=== PATIENT | female | born 1935 | race Caucasian/White ===

== ENCOUNTER → 2017-02-23 | Outpatient (CLI) | payer MEDICARE, OTHER ==
[~2017-02-23] MED LIST: AUGMENTIN 875 M1 TAB PO; CLARITIN10 MG PO
== END | disposition home or self-care (01) ==
LOC: RAD 12:35
DX: M25.471 Effusion, right ankle (principal)

== ENCOUNTER → 2017-09-22 | Outpatient (CLI) | payer MEDICARE, MEDICAID | END | disposition home or self-care (01) | LOC: RAD 12:56 → US 13:30 | DX: M71.21 Synovial cyst of popliteal space [Baker], right knee (principal) ==

== ENCOUNTER → 2017-11-16 | Outpatient (CLI) | payer MEDICARE, MEDICAID ==
[~2017-11-16] MED LIST changes: +ANAPROX DS550 MG PO
== END | disposition home or self-care (01) ==
LOC: RAD 15:57
DX: M17.11 Unilateral primary osteoarthritis, right knee (principal); M25.461 Effusion, right knee

== ENCOUNTER 2017-11-20 13:53 | Emergency (ER) | payer MEDICARE, MEDICAID ==
[~2017-11-20] VITALS: Ht 157.4 cm; Wt 57.2 kg
[~2017-11-20 13:53] MED LIST changes: -ANAPROX DS550 MG PO
[2017-11-20 15:30] VITALS: BP 134/78
[2017-11-20] MEDS ORDERED: ANAPROX DS550 MG PO (16:03)
== END 2017-11-20 16:11 | disposition home or self-care (01) ==
LOC: ED 13:53
DX: M17.11 Unilateral primary osteoarthritis, right knee (principal); Z98.51 Tubal ligation status; Z86.718 Personal history of other venous thrombosis and embolism

== ENCOUNTER 2018-01-26 12:27 | Inpatient (IN) | payer OTHER, MEDICAID ==
[~2018-01-26] VITALS: Ht 157.5 cm; Wt 54.0 kg
--- NOTE | ~2018-01-26 | PR ---
[place], [place] PROGRESS NOTE NAME: KENYETTA JOYCE UNIT #: [id number] ROOM: 506 DOCTOR: AJ SUAREZ MD BIRTHDATE: [birth year] DOS: SUBJECTIVE: The patient looks much better this morning. She is not struggling to breathe like yesterday and now she has improved. OBJECTIVE: VITAL SIGNS: Graphic trend shows a pressure of 143/75, pulse of 85, respirations 18 and temperature 98.3. LUNGS: Diminished breath sounds, clear. HEART: Regular. ABDOMEN: Soft. EXTREMITIES: Without any edema. ASSESSMENT AND PLAN: 1. Congestive heart failure, on IV diuretics. Chest CT scan did not show any pneumonia. The white cell count elevation is most likely from steroid effect. We will decrease the steroid dosage some. White cell count is already coming down to 18,000. 2. Recent diagnosis of pneumonia, none seen on the CT scan other than atelectasis and antibiotics will be continued. 3. Iron deficiency anemia. Supplements have been ordered. AJ SUAREZ MD CM:PNTRANS [id number] AJ SUAREZ MD 01/31/18 1023 interface
--- NOTE | ~2018-01-26 | PR ---
[place], [place] PROGRESS NOTE NAME: KENYETTA JOYCE UNIT #: [id number] ROOM: 506 DOCTOR: AJ SUAREZ MD BIRTHDATE: [birth year] DOS: 01/28/2018 SUBJECTIVE: The patient is feeling good and is not having any complaints. Denies any chest pains, palpitations or shortness of breath. On examination, the patient has baseline shortness of breath which has really not changed a whole lot as per the patient. OBJECTIVE: VITAL SIGNS: Graphic trend shows a pressure of 149/85, pulse of 106, respirations 18 and temperature 97.5. LUNGS: Diminished breath sounds. HEART: Regular. ABDOMEN: Obese and soft. EXTREMITIES: Without any edema. She looks extremely tired and weak. LABORATORY DATA: This morning shows a white cell count of 22.8. ASSESSMENT AND PLAN: 1. The patient with possible sepsis with elevated white cell count. Blood culture so far has been negative. The chest will be ordered to rule out underlying pneumonia. 2. Left ventricular dysfunction, ejection fraction is pretty low at 40%. The patient will be diuresed more vigorously. AJ SUAREZ MD CM:PNTRANS [id number] [id number] AJ SUAREZ MD 01/29/18 0144 interface
--- NOTE | ~2018-01-26 | DS ---
[place], [place] DISCHARGE SUMMARY NAME: [id number] UNIT #: [id number] ROOM: 506 DOCTOR: KAILASH ALEXIS MD BIRTHDATE: [birth year] DOS: 01/31/2018 DISCHARGE DIAGNOSES: 1. The patient's leukocytosis from corticosteroids and pneumonitis, improving with antibiotics. 2. Acute congestive heart failure, systolic, now improved with diuresis. 3. History of hypothyroidism. 4. Benign essential hypertension. 5. Anemia of chronic disease. 6. Chronic obstructive pulmonary disease from secondhand smoke. 7. Sepsis with tachycardia, leukocytosis and acute respiratory failure with elevation of BUN and creatinine, BUN and creatinine improved. 8. Osteoarthritis involving multiple large joints. 9. Raynaud's disease. HOSPITAL COURSE: The patient presented with increased shortness of breath, feeling quite sick and was found to be in acute congestive heart failure, systolic type as well as acute exacerbation of COPD and pneumonitis with leukocytosis. The patient was considered septic. The patient is feeling miserable and gradually her condition has improved with diuresis, treatment with antibiotics and her breathing is much better. The patient feels desperate to go home and she appears to have achieved maximal benefit from this admission. The patient is not tachycardic anymore. She is breathing better and has been seen by Cardiology. The patient was treated with antibiotics for acute exacerbation of COPD and suspected pneumonitis, which was clinically suspected because of her leukocytosis and the patient being quite sick. Her condition is much improved and leukocytosis improving, so she will be discharged home on oral antibiotics to be seen as an outpatient. Acute exacerbation of chronic obstructive pulmonary disease, improved with treatment. Adult failure to thrive, the patient worked with physical therapy and she has improved. LABORATORY DATA: BUN and creatinine at 43 and 1.8, normal serum electrolytes, BUN and creatinine elevated from use of IV diuresis. Hemoglobin improved to 8.9. Blood cultures were negative. CT of the chest showed airspace disease next to bilateral pleural effusions and some vascular congestion. DISCHARGE MANAGEMENT: Hydralazine 25 mg 3 times a day, furosemide, no prednisone, levothyroxine 75 mcg daily, metoprolol 25 mg b.i.d., trazodone 50 mg at bedtime p.r.n. for sleep, Augmentin 875 mg twice a day for 4 weeks. Follow up at the office with me this week. [place], [place] DISCHARGE SUMMARY NAME: KENYETTA JOYCE UNIT #: [id number] ROOM: 506 DOCTOR: KAILASH ALEXIS MD BIRTHDATE: [birth year] KAILASH ALEXIS MD CM:DISCHARG [id number] KAILASH ALEXIS MD 01/31/18 1753 interface
--- NOTE | ~2018-01-26 | PR ---
[place], [place] PROGRESS NOTE NAME: KENYETTA JOYCE UNIT #: [id number] ROOM: 506 DOCTOR: AJ SUAREZ MD BIRTHDATE: [birth year] DOS: 01/30/2018 SUBJECTIVE: The patient is not having any complaints this morning. Denies any chest pains, palpitations or shortness of breath. OBJECTIVE: VITAL SIGNS: Graphic trend shows a pressure 146/77, pulse of 84, respirations 18, temperature 98.1. LUNGS: Diminished breath sounds. No wheezes, rales, rhonchi heard this morning. HEART: Regular. ABDOMEN: Obese, soft and nontender. EXTREMITIES: Without any edema. ASSESSMENT AND PLAN: 1. Acute systolic congestive heart failure, with moderate bilateral pleural effusions and atelectasis and vascular congestion, on IV diuretics improving. 2. Echocardiogram showing valvular heart disease. The patient to have a STEPHEN as an outpatient. 3. Cardiac ischemia workup to be done with catheterization also as an outpatient as per Dr. Montemayor's notes. 4. Elevated white cell count, possibly steroid effect, which has been discontinued. Hopefully, it will come down on its own and she is already being covered with antibiotics. We will repeat the CBC again tomorrow. 5. Anemia, iron deficiency. The patient may require a GI workup as an outpatient before the cardiac catheterization. She tells me she had more than 10 years ago, which was negative. AJ SUAREZ MD CM:PNTRANS [id number] AJ SUAREZ MD 01/31/18 1024 interface
--- NOTE | ~2018-01-26 | PR ---
[place], [place] PROGRESS NOTE NAME: KENYETTA JOYCE [facility] #: [id number] UNIT #: [id number] ROOM: 506 DOCTOR: JOSE R LEONG MD BIRTHDATE: [birth year] DOS: 01/30/2018 CARDIOLOGY PROGRESS NOTE SUBJECTIVE: The patient was seen at her bedside today on 01/30/2018 for followup of her heart failure. 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 She presented to the hospital on January 26 with worsening dyspnea and was felt to have heart failure. An echocardiogram done on January 27 showed left ventricular dysfunction with septal wall motion abnormality and an ejection fraction between 45% and 50%. Right ventricular systolic pressure was moderately elevated between 50% and 55%. Mitral valve did demonstrate [id number] regurgitation, but no stenosis. The patient was treated with diuretics and has improved. She was also placed on beta blockers for heart rate control. She has subsequently been placed on hydralazine as an afterload reducing agent. Today, she looks and feels better. She has diuresed 2000 mL in the last 24 hours. PHYSICAL EXAMINATION: VITAL SIGNS: Her pulse is 77 and regular, blood pressure is 141/69. She is afebrile. NECK: Supple. She has no jugular distention. Carotids are full. I heard no bruits. She had no neck or supraclavicular masses. LUNGS: Respirations are unlabored. Her chest is clear. She has no presacral edema. HEART: Has a regular rhythm. She has a fourth heart sound. I could not hear her murmur today. ABDOMEN: Benign. EXTREMITIES: Showed no edema. LABORATORY DATA: Hemoglobin is 7.6, white count is 18,200, platelet count 626,000. Sodium 134, potassium 4.5, BUN 46, creatinine 1.94. IMPRESSION: 1. Congestive heart failure, improved with better compensation over the last few days. 2. Anemia, unexplained. 3. Hypertension. 4. History of hypothyroidism. 5. History of chronic obstructive pulmonary disease from secondhand smoke exposure. PLAN: We will continue her current diuretics for the present time. She will require further workup of her anemia. In addition, I would like her to undergo an ischemia workup to evaluate her for possible ischemic mitral insufficiency. She is reluctant to proceed with that at this time until she is feeling better. For now, we will increase her hydralazine and continue to observe her in the hospital. [place], [place] PROGRESS NOTE NAME: KENYETTA JOYCE UNIT #: [id number] ROOM: 506 DOCTOR: JOSE R LEONG MD BIRTHDATE: [address] Campo and Dr. Limon for asking our advice regarding management of this patient. JOSE R LEONG MD CM:PNTRANS [id number] JOSE R LEONG MD 01/31/18 0614 interface
--- NOTE | ~2018-01-26 | CON ---
[place], [place] REPORT OF CONSULTATION NAME: KENYETTA JOYCE UNIT #: [id number] ROOM: 506 DOCTOR: JOSE R LEONG MD BIRTHDATE: [birth year] DOS: 01/27/2018 CHIEF COMPLAINT: Dyspnea and fatigue. 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 She is status post right carotid endarterectomy in March 2012. She has never had a stroke or heart attack. She states that she has felt poorly for about 2 weeks. Her appetite has decreased and she has had some nausea, but no vomiting. She has been treated as an outpatient for bronchitis, but has not gotten better and therefore came in to the hospital for further management. On admission, she was found to be tachycardic. She was anemic with a hemoglobin of 8.0. Chest x-ray did show vascular congestion. She was diuresed and we were asked to see her. PAST MEDICAL HISTORY: Includes 1. Essential hypertension. 2. Hypothyroidism. 3. Raynaud's phenomenon. 4. Obstructive lung disease due to secondhand smoke exposure. 5. History of carotid vascular disease, status post carotid endarterectomy March 2012, patient denies any history of stroke. 6. No history of heart attack, diabetes or stroke. FAMILY HISTORY: Positive for her brother and sister dying of heart attacks. Her father had a heart problem, but of suicide. Son also had amyotrophic lateral sclerosis and perished from that. MEDICATIONS: Prior to admission, Restasis eyedrops b.i.d., acetaminophen 500 mg q. 6 hours p.r.n., amlodipine 5 mg daily, aspirin 81 mg daily, cholecalciferol 1000 units daily, ibuprofen 200 mg every 4 hours for the last 2-3 months and levothyroxine 75 mcg daily. ALLERGIES: LATEX. REVIEW OF SYSTEMS: The patient denies diplopia or loss of vision. She denies lightheadedness or syncope. She denies orthopnea or PND. She has been dyspneic and fatigued. She has felt her heart pounding. She denies nausea or vomiting, but she does have anorexia. She denies hemoptysis or hematemesis. She does have mild cough, but denies any sputum production. She denies change in bowel or bladder habits. She denies blood in her stools or urine. She denies melena or hematochezia. She denies peripheral edema. She denies heat or cold intolerance and denies polyuria or polydipsia. The remainder of the review of systems is negative except as noted above. SOCIAL HISTORY: The patient lives alone with her dogs. She does not smoke nor does she consume significant amounts of alcohol. PHYSICAL EXAMINATION: [place], [place] REPORT OF CONSULTATION NAME: KENYETTA JOYCE UNIT #: [id number] ROOM: [facility] DOCTOR: JOSE R LEONG MD BIRTHDATE: [birth year] GENERAL: The patient is a slender, elderly white female who is awake, alert and oriented. VITAL SIGNS: Pulse is 110 and regular, blood pressure is 148/82. She is afebrile. She weighs 54 kg and has a body mass index 21.8. HEENT: Normocephalic and atraumatic. Extraocular muscles are intact. Sclerae are clear. Pupils equal, round and react to light. The oral mucosa is moist. Tongue is midline. NECK: Supple. She has no jugular distention or hepatojugular reflux. Carotids are full. There are no bruits. She has no neck or supraclavicular masses. LUNGS: Respirations are unlabored. She has decreased breath sounds at the bases with a few scattered crackles at the bases. She has no presacral edema or chest wall tenderness. HEART: Has a regular rhythm. She has a soft S4 gallop, but no S3 or murmur. The PMI is not displaced. There is no precordial heave, lift or thrill. ABDOMEN: Soft and normally active without masses, organomegaly or bruits. EXTREMITIES: Showed trace edema at the ankles. Pedal pulses are easily palpated bilaterally. LABORATORY DATA: Chest x-ray showed cardiomegaly and vascular congestion. Her electrocardiogram shows sinus tachycardia with left ventricular hypertrophy and nonspecific T-wave changes. Hemoglobin is 8.0 with hematocrit 26.6, there are 11,700 white cells and 626,000 platelets present. Sodium is 137, potassium 4.1, chloride 105, CO2 21, BUN 24, creatinine 1.36. IMPRESSION: 1. Congestive heart failure with pulmonary vascular congestion. This may be related to high output failure from her anemia or diastolic heart failure from long-term hypertension. In addition, she is taking a relatively high dose of ibuprofen and this may be causing renal insufficiency, blood loss, etc. 2. Anemia with hemoglobin 8.0. 3. Hypertension. 4. History of hypothyroidism. 5. History of COPD from secondhand smoke exposure. PLAN: I will start her on a low dose of beta festus to help control her heart rate, but I will defer evaluation of her anemia to her primary physicians. We will review the echocardiogram when it is available. Further recommendations regarding the cause of her pulmonary vascular congestion and its management will depend upon the results of the echo. We thank Dr. Campo for asking our advice regarding her care. [place], [place] REPORT OF CONSULTATION NAME: KENYETTA JOYCE UNIT #: [id number] ROOM: [facility] DOCTOR: JOSE R LEONG MD BIRTHDATE: [birth year] JOSE R LEONG MD CM:CONSTR:REPORT OF CONSULTATION 1424 01/28/18 1056 interface
--- NOTE | ~2018-01-26 | PR ---
[place], [place] PROGRESS NOTE NAME: KENYETTA JOYCE UNIT #: [id number] ROOM: 506 DOCTOR: KAILASH ALEXIS MD BIRTHDATE: [birth year] DOS: 01/27/2018 SUBJECTIVE: The patient is still feeling miserable, although not complaining of any significant shortness of breath or any other symptoms. OBJECTIVE: VITAL SIGNS: Blood pressure 159/80, heart rate 106 beats per minute, breathing 18 times per minute, temperature 98 degrees Fahrenheit. GENERAL APPEARANCE: The patient is alert and oriented x 3, in no visible distress. HEENT AND NECK: Exam within normal limits. CARDIOVASCULAR SYSTEM: Heart rate is regular in rate and rhythm. S1 and S2 normally audible. LUNGS: Basal crackles and somewhat decreased breath sounds on lung auscultation. ABDOMEN: Soft, nontender. No obvious organomegaly. Bowel sounds are present. EXTREMITIES: Without significant cyanosis or edema. IMPRESSION: Slight leukocytosis. Hemoglobin at 8 and stable. IMPRESSION: 1. Acute exacerbation of chronic obstructive pulmonary disease, with some shortness of breath, being treated with corticosteroids, oxygen, antibiotic and bronchodilators. 2. Sepsis, tachycardia, pneumonitis, being treated as mentioned above. 3. Acute congestive heart failure with bibasilar vascular congestion and effusions, being treated with diuresis. 4. Adult failure to thrive. The patient worked with physical therapy. 5. Sepsis with hypoxemia, elevation of BUN and creatinine, respiratory failure, tachycardia and leukocytosis with slow improvement with treatment. 6. Benign essential hypertension, treated and controlled. KAILASH ALEXIS MD CM:PNTRANS [id number] KAILASH ALEXIS MD 01/27/18 2334 interface
--- NOTE | ~2018-01-26 | WRIGHTHP ---
[place], [place] PATIENT HISTORY AND PHYSICAL EXAM NAME: KENYETTA JOYCE [facility] #: [id number] UNIT #: [id number] ROOM: 506 DOCTOR: KAILASH ALEXIS MD BIRTHDATE: [birth year] DOS: 01/26/2018 The patient is an 82-year-old female with a past medical history of: 1. Hypothyroidism. 2. Raynaud's disease. 3. Benign essential hypertension. 4. Osteoarthritis involving multiple joints. 5. COPD. The patient presented to [facility] after failed outpatient treatment. The patient presented to my office and was treated with antibiotics and corticosteroids. The patient's voiding did not improve and she is still having cough for about 2 weeks along with shortness of breath. The patient has not been a smoker, but she had been exposed to significant amount of secondhand smoke and had decreased breath sounds and also crackles at the lung bases. After initial treatment in the Emergency Department and she was found to have some leukocytosis, she was recommended for admission for pneumonitis, after she was given initial antibiotics. The patient also diagnosed as having acute respiratory failure and sepsis. After admission, the patient is still feeling about the same. No fainting episode. No other GI or urinary symptoms. No chest pains, no other GI or urinary symptoms. SYSTEMS REVIEW: LUNGS: Increasing shortness of breath. GASTROINTESTINAL: No nausea, vomiting, diarrhea or constipation. CARDIOVASCULAR: No chest pains or palpitations. ALLERGIES: No known drug allergies. FAMILY HISTORY: Noncontributory. HOME MEDICATIONS: The patient takes Tylenol, ibuprofen for arthritis pains. She takes Restasis eyedrops, Tylenol, Advil, amlodipine, aspirin, vitamin D. FAMILY HISTORY: Noncontributory. SOCIAL HISTORY: Denies smoking cigarettes, alcohol and drug abuse with significant history of secondhand smoke. PHYSICAL EXAMINATION: GENERAL: Alert, oriented x 3, looking somewhat weak. Generalized weakness and decreased breath sounds all over including fine crackles at the lung bases. VITAL SIGNS: Blood pressure 142/76, heart rate 102 beats per minute, breathing 22 times per minute, temperature 98 degrees Fahrenheit. HEENT AND NECK: Extraocular movements are intact. Sclerae are anicteric. Oral mucosa is moist and clean. No obvious facial weakness. Neck is supple without any lymphadenopathy. No thyromegaly. No JVD. No carotid arterial bruits. LUNGS: Clear to auscultation. No wheezing. No rhonchi. CARDIOVASCULAR SYSTEM: Heart rate is regular in rate and rhythm. S1 and S2 [place], [place] PATIENT HISTORY AND PHYSICAL EXAM NAME: KENYETTA JOYCE UNIT #: [id number] ROOM: [facility] DOCTOR: KAILASH ALEXIS MD BIRTHDATE: [birth year] normally audible. No significant murmur or any other abnormal cardiac sounds. ABDOMEN: Soft, nontender. No obvious organomegaly. Bowel sounds are present. No obvious herniation. EXTREMITIES: Without significant cyanosis or edema. Warm to touch. CENTRAL NERVOUS SYSTEM: Alert and oriented x 3. Cranial nerves II-XII are intact. Speech is normal. The patient is able to move all extremities. Normal muscle strength. Deep tendon reflexes are equal on both sides. Plantars were downgoing. IMPRESSION: 1. The patient with sepsis with tachycardia, pneumonitis with bibasilar vascular congestion and effusions, increased shortness of breath to be treated with antibiotics, oxygen and bronchodilators. I am consulting Cardiology to see the patient and I have also ordered echocardiogram for further evaluation. 2. Acute exacerbation of chronic obstructive pulmonary disease being treated with corticosteroids, antibiotics and oxygen along with bronchodilators. 3. Adult failure to thrive. The patient started on physical therapy. 4. Sepsis, this patient has leukocytosis, tachycardia, respiratory failure, and BUN and creatinine elevated to 23 and 1.3 along with hypoxemia. Pulse ox was 88% when she presented to the Emergency Department. 5. Benign essential hypertension. The patient on Norvasc, which will be continued. Blood pressures will be monitored. KAILASH ALEXIS MD CM:HISPHYS:PATIENT HISTORY AND PHYSICAL EXAMINATION 44 21 KAILASH ALEXIS MD 01/26/181819 interface
--- NOTE | ~2018-01-26 | PR ---
[place], [place] PROGRESS NOTE NAME: KENYETTA JOYCE [facility] #: [id number] UNIT #: [id number] ROOM: 506 DOCTOR: JOSE R LEONG MD BIRTHDATE: [birth year] DOS: 01/31/2018 SUBJECTIVE: The patient was seen at her bedside today 01/31/2018 for followup of her acute heart failure. 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 She presented to the hospital on 01/26/2018 with worsening dyspnea and heart failure. An echocardiogram done on 01/27/2018 showed left ventricular dysfunction with septal wall motion abnormality and ejection fraction between 45% and 50%. Right ventricular systolic pressures were moderately elevated at between 50 and 55 mmHg. Mitral valve did demonstrate mahmkqfj-[id number]-[id number] regurgitation, but no stenosis. She was treated with diuretics and beta blockers as well as hydralazine. She has become euvolemic and now feels much better. There is a concern that her heart failure and her mitral insufficiency may be due to ischemia and further evaluation is indicated, however, the patient would like to take a little time to recover before having any further testing and is anxious for discharge. She denies any chest pain and has been able to ambulate in the halls without difficulty. PHYSICAL EXAMINATION: VITAL SIGNS: Today, her pulse is 85 and regular, blood pressure 141/66. She is afebrile. She weighs 54 kg and has a body mass index of 21.8. HEENT: Normocephalic and atraumatic. Extraocular muscles are intact. Sclerae are clear. Pupils equal, round and react to light. Oral mucosa is moist. Tongue is midline. NECK: Supple. There is no jugular distention. Carotids are full. LUNGS: Respirations are unlabored. Her chest is clear to auscultation and percussion. She has no presacral edema. HEART: Has a regular rhythm. She has a fourth heart sound, but no third heart sound. I do not hear a mitral insufficiency murmur today. The PMI is not displaced. ABDOMEN: Benign. EXTREMITIES: Showed no edema. LABORATORY DATA: Hemoglobin today is 8.9, white count 15,800, platelet count 666,000. Sodium is 137, potassium 3.6, chloride 97, CO2 of 31, BUN 43, creatinine 1.82. IMPRESSION: 1. Acute congestive heart failure. 2. 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 Symptoms and exam improved with appropriate guideline directed medical therapy. 3. Anemia with leukocytosis and thrombophilia. The patient has been weaned off of steroids and this is the presumed cause, but will require followup. PLAN: From a cardiac perspective, our next step will be a pharmacologic stress test, which will be done within the next week as an outpatient. If this shows [place], [place] PROGRESS NOTE NAME: KENYETTA JOYCE UNIT #: [id number] ROOM: 506 DOCTOR: SALO DORSEY,JOSE R BIRTHDATE: [birth year] significant ischemia and left ventricular dysfunction, then cardiac catheterization would be the next step. A transesophageal echocardiogram may be considered in the future as well depending on the patient's progress and the results of studies such as her catheterization. We thank Dr. Campo and Dr. Limon for asking our advice regarding the patient's care. JOSE R LEONG MD CM:PNTRANS 1136 [id number] JOSE R LEONG MD 02/01/18 1004 interface
[2018-01-26 12:27] VITALS: BP 146/85
[~2018-01-26 12:27] MED LIST changes: +ANAPROX DS550 MG PO
[2018-01-26 14:00] VITALS: BP 143/88
[2018-01-26 14:26] LABS: BASO % 0.3 % (0.0-1.0); EOS # 0.3 10*3/uL (0.0-0.4); EOS % 2.6 % (1.0-4.0); HEMATOCRIT 27.5 % (37.0-47.0); HEMOGLOBIN 8.4 g/dl (12.0-16.0); LYMPH # 2.3 10*3/uL (1.3-4.4); MEAN CELL VOLUME 86.2 fl (81.0-99.0); MEAN CORPUSCULAR HGB 26.3 pg (27.0-31.0); MEAN CORPUSCULAR HGB CONC 30.5 g/dl (33.0-37.0); MEAN PLATELET VOLUME 8.6 fl (9.6-12.3); MONO # 0.8 10*3/uL (0.1-1.0); MONO % 6.2 % (3.0-9.0); NEUT # 9.8 10*3/uL (2.3-7.9); NEUT % 73.1 % (47.0-73.0); PLATELET COUNT AUTOMATED 575 10*3/uL (130-400); RED BLOOD COUNT 3.19 10*6/uL (4.10-5.10); RED CELL DISTRI WIDTH 16.4 % (0-14.5); WHITE BLOOD COUNT 13.3 10*3/uL (4.8-10.8)
[2018-01-26 14:42] LABS: ALBUMIN 3.2 gm/dl (3.1-4.5); CREATININE 1.31 mg/dL (0.55-1.02); TOTAL PROTEIN 7.9 gm/dL (6.4-8.2)
[2018-01-26 14:53] LABS: BILIRUBIN NEGATIVE (NEGATIVE); BLOOD NEGATIVE (NEGATIVE); CLARITY CLEAR (CLEAR); COLOR YELLOW (YELLOW); GLUCOSE NEGATIVE (NEGATIVE); KETONE NEGATIVE (NEGATIVE); LEUKO ESTERASE 1+ (NEGATIVE); NITRITE NEGATIVE (NEGATIVE); PH 5.5 (5.0-9.0); SPECIFIC GRAVITY <= 1.005 (1.005-1.030); UROBILINOGEN 0.2 E.U./dl (0.2-1.0)
[2018-01-26 15:00] VITALS: BP 151/90
[2018-01-26 15:00] LABS: RBC 0-2 rbc/hpf (0-2)
[2018-01-26 15:01] LABS: BACTERIA 2+
[2018-01-26 16:00] VITALS: BP 142/76
[2018-01-26] MEDS ORDERED: VITAMIN D31000 UNI1 PO (17:23)
[2018-01-26] MEDS ORDERED: ASPIRIN ADULT L81 M1 PO (17:24)
[2018-01-26] MEDS ORDERED: NORVASC5 MG PO (17:24)
[2018-01-26] MEDS ORDERED: TYLENOL EXTRA500 MG PO (17:25)
[2018-01-26] MEDS ORDERED: RESTASIS1 EACH OP (17:25)
[2018-01-26] MEDS ORDERED: MOTRIN IB200 M1 PO (17:27)
[2018-01-26 20:00] VITALS: BP 171/87
[2018-01-27] VITALS: BP 159/80
[2018-01-27 06:32] LABS: BASO % 0.2 % (0.0-1.0); HEMATOCRIT 26.6 % (37.0-47.0); LYMPH # 1.4 10*3/uL (1.3-4.4); MEAN CELL VOLUME 86.1 fl (81.0-99.0); MEAN CORPUSCULAR HGB 25.9 pg (27.0-31.0); MEAN CORPUSCULAR HGB CONC 30.1 g/dl (33.0-37.0); MEAN PLATELET VOLUME 8.8 fl (9.6-12.3); MONO # 0.2 10*3/uL (0.1-1.0); MONO % 1.9 % (3.0-9.0); NEUT % 84.7 % (47.0-73.0); PLATELET COUNT AUTOMATED 626 10*3/uL (130-400); RED BLOOD COUNT 3.09 10*6/uL (4.10-5.10); RED CELL DISTRI WIDTH 16.7 % (0-14.5); WHITE BLOOD COUNT 11.7 10*3/uL (4.8-10.8)
[2018-01-27 06:55] LABS: CREATININE 1.36 mg/dL (0.55-1.02); POTASSIUM 4.1 mmol/L (3.5-5.1)
[2018-01-27] MEDS ORDERED: LEVOTHYROXINE75 MCG PO (07:23)
[2018-01-27 12:00] VITALS: BP 148/82
[2018-01-27 16:00] VITALS: BP 147/77
[2018-01-27 20:00] VITALS: BP 163/96
[2018-01-28] VITALS: BP 149/85
[2018-01-28 06:33] LABS: HEMATOCRIT 27.3 % (37.0-47.0); HEMOGLOBIN 8.2 g/dl (12.0-16.0); MEAN CELL VOLUME 87.5 fl (81.0-99.0); MEAN CORPUSCULAR HGB 26.3 pg (27.0-31.0); MEAN PLATELET VOLUME 9.3 fl (9.6-12.3); PLATELET COUNT AUTOMATED 722 10*3/uL (130-400); RED BLOOD COUNT 3.12 10*6/uL (4.10-5.10); RED CELL DISTRI WIDTH 17.1 % (0-14.5); WHITE BLOOD COUNT 22.8 10*3/uL (4.8-10.8)
[2018-01-28 07:12] LABS: CREATININE 1.71 mg/dL (0.55-1.02); POTASSIUM 4.9 mmol/L (3.5-5.1)
[2018-01-28 07:32] LABS: PLATELET SUFFICIENCY HIGH (NORMAL); TOTAL CELLS COUNTED 100 #CELLS
[2018-01-28 08:00] VITALS: BP 150/72
[2018-01-28 12:00] VITALS: BP 145/80
[2018-01-28 16:00] VITALS: BP 149/80
[2018-01-28 20:00] VITALS: BP 151/66
[2018-01-29] VITALS: BP 143/75
[2018-01-29 06:13] LABS: HEMATOCRIT 25.2 % (37.0-47.0); HEMOGLOBIN 7.6 g/dl (12.0-16.0); MEAN CELL VOLUME 86.3 fl (81.0-99.0); MEAN CORPUSCULAR HGB CONC 30.2 g/dl (33.0-37.0); MEAN PLATELET VOLUME 9.3 fl (9.6-12.3); PLATELET COUNT AUTOMATED 626 10*3/uL (130-400); RED BLOOD COUNT 2.92 10*6/uL (4.10-5.10); WHITE BLOOD COUNT 18.2 10*3/uL (4.8-10.8)
[2018-01-29 06:31] LABS: CREATININE 1.94 mg/dL (0.55-1.02); POTASSIUM 4.5 mmol/L (3.5-5.1)
[2018-01-29 07:02] LABS: PLATELET SUFFICIENCY HIGH (NORMAL); TOTAL CELLS COUNTED 100 #CELLS
[2018-01-29 08:00] VITALS: BP 144/73
[2018-01-29 12:00] VITALS: BP 142/72
[2018-01-29 16:00] VITALS: BP 149/78
[2018-01-29 20:00] VITALS: BP 143/74
[2018-01-30] VITALS: BP 146/77
[2018-01-30 08:00] VITALS: BP 141/69
[2018-01-30 12:00] VITALS: BP 131/68
[2018-01-30 16:00] VITALS: BP 144/64
[2018-01-30 20:00] VITALS: BP 146/70
[2018-01-31] VITALS: BP 148/71
[2018-01-31] MEDS ORDERED: IBUPROFEN600 MG PO (01:41)
[2018-01-31 06:45] LABS: HEMATOCRIT 29.1 % (37.0-47.0); HEMOGLOBIN 8.9 g/dl (12.0-16.0); MEAN CELL VOLUME 86.1 fl (81.0-99.0); MEAN CORPUSCULAR HGB 26.3 pg (27.0-31.0); MEAN CORPUSCULAR HGB CONC 30.6 g/dl (33.0-37.0); PLATELET COUNT AUTOMATED 666 10*3/uL (130-400); RED BLOOD COUNT 3.38 10*6/uL (4.10-5.10); RED CELL DISTRI WIDTH 17.4 % (0-14.5); WHITE BLOOD COUNT 15.8 10*3/uL (4.8-10.8)
[2018-01-31 07:04] LABS: CREATININE 1.82 mg/dL (0.55-1.02); POTASSIUM 3.6 mmol/L (3.5-5.1)
[2018-01-31 07:34] LABS: TOTAL CELLS COUNTED 100 #CELLS
[2018-01-31 07:35] LABS: PLATELET SUFFICIENCY HIGH (NORMAL); POLYCHROMASIA SLIGHT
[2018-01-31 08:00] VITALS: BP 141/66
[2018-01-31] MEDS ORDERED: AUGMENTIN 875-875 MG PO (09:20)
== END 2018-01-31 11:35 | disposition home or self-care (01) | DRG 871 ==
LOC: ED 12:27 → EDHOLD 14:24 → 5E 14:24
PROVIDERS: Internal Medicine; Nurse Practitioner
DX: A41.9 Sepsis, unspecified organism (principal); J18.9 Pneumonia, unspecified organism; J96.01 Acute respiratory failure with hypoxia; I50.21 Acute systolic (congestive) heart failure; J44.0 Chronic obstructive pulmonary disease with (acute) lower respiratory infection; I34.0 Nonrheumatic mitral (valve) insufficiency; I13.0 Hypertensive heart and chronic kidney disease with heart failure and stage 1 through stage 4 chronic kidney disease, or unspecified chronic kidney disease; D63.8 Anemia in other chronic diseases classified elsewhere; J44.1 Chronic obstructive pulmonary disease with (acute) exacerbation; Z66 Do not resuscitate; Z51.5 Encounter for palliative care; N18.9 Chronic kidney disease, unspecified; E03.9 Hypothyroidism, unspecified; I73.00 Raynaud's syndrome without gangrene; T38.0X5A Adverse effect of glucocorticoids and synthetic analogues, initial encounter; M19.90 Unspecified osteoarthritis, unspecified site; R62.7 Adult failure to thrive; D50.9 Iron deficiency anemia, unspecified; Z91.040 Latex allergy status; Z79.82 Long term (current) use of aspirin; Z79.899 Other long term (current) drug therapy; Z98.51 Tubal ligation status; Z98.49 Cataract extraction status, unspecified eye; Z80.9 Family history of malignant neoplasm, unspecified; Z82.49 Family history of ischemic heart disease and other diseases of the circulatory system; Y92.89 Other specified places as the place of occurrence of the external cause

== ENCOUNTER → 2018-02-06 | Outpatient (CLI) | payer OTHER, MEDICAID ==
[~2018-02-06] MED LIST changes: +APRESOLINE25 MG PO; +ASPIRIN ADULT L81 M1 PO; +ASPIRIN81 M1 PO; +AUGMENTIN 875-875 MG PO; +CEFUROXIME AXE250 MG PO; +CYPROHEPTADINE H4 M1 PO; +IBUPROFEN600 MG PO; +IMDUR SA30 MG PO; +Ipratropium Brom3 ML NEB; +KLOR-CON M2020 ME1 PO; +LASIX40 MG PO; +LEVOTHYROXINE75 MCG PO; +LEVOXYL75 MCG PO; +MOTRIN IB200 M1 PO; +NORVASC5 MG PO; +RESTASIS1 EACH OP; +TENORMIN25 M1 PO; +TYLENOL EXTRA500 MG PO; +VITAMIN D31000 UNI1 PO
--- NOTE | ~2018-02-06 | ST ---
[place], [place] EXERCISE STRESS TEST REPORT NAME: KENYETTA JOYCE [facility] #: [id number] UNIT #: [id number] ROOM: DOCTOR: KATHLEEN DORSEY,ED BIRTHDATE: [birth year] DOS: 02/06/2018 REFERRING PHYSICIAN: Dr. Jorge Fung. REASON FOR TEST: Chest pain. PHYSICAL EXAMINATION: NECK: Supple. LUNGS: Clear anteriorly. HEART: Regular rhythm. PROTOCOL: Lexiscan protocol. Maximum heart rate 110, peak blood pressure 132/70. SYMPTOMS: The patient has some shortness of breath, nausea, resolved. EKG: Resting EKG showed sinus rhythm. Stress EKG showed no ischemia, no arrhythmias. CONCLUSION: Clinically, the patient is chest pain free, developed some shortness of breath with nausea, resolved. POST-STRESS COMPLICATIONS: None. The patient received a total of 0.4 mg Lexiscan. ED WANG MD CM:STRESS:EXERCISE STRESS TEST REPORT [id number] ED WANG MD
== END | disposition home or self-care (01) ==
LOC: CARD 00:46
DX: R07.2 Precordial pain (principal); R53.81 Other malaise

== ENCOUNTER 2018-02-24 17:12 | Inpatient (IN) | payer OTHER, MEDICAID ==
[2018-02-24] VITALS (11 sets, daily range): BP systolic 92–182; BP diastolic 50–114
[~2018-02-24] VITALS: Ht 157.4 cm; Wt 51.8 kg
--- NOTE | ~2018-02-24 | EKG ---
[place], [place] ELECTROCARDIOGRAM REPORT NAME: KENYETTA JOYCE UNIT #: [id number] ROOM: 409 DOCTOR: CHRISTINA DRAFT REPORT BIRTHDATE: [birth year] [facility] Test Date: 2018-02-24 Test Time: 17:58:43 Pat Name: KENYETTA JOYCE Department: Room: Gender: F Manager Of Health: EKG.NC : 1935 Requested By: CONSTANTINE HOWE PA-C Order Number: [id number] Reading MD: Jorge Fung MD Measurements Intervals Robinson Rate: 128 P: 64 MD: 142 QRS: 39 QRSD: 76 T: 44 QT: 318 QTc: 464 Interpretive Statements Sinus tachycardia Left atrial enlargement Poor precordial R-wave progression Electronically Signed On 02-27-2018 18:42:08 PDT by Jorge Fung MD CM:EKGRPT:ELECTROCARDIOGRAM REPORT [id number] CONSTANTINE HOWE PA-C EPIPHARACELY DRAFT REPORT CONSTANTINE HOWE PA-C
--- NOTE | ~2018-02-24 | WRIGHTHP ---
[place], [place] PATIENT HISTORY AND PHYSICAL EXAM [id number] UNIT #: [id number] ROOM: 409 DOCTOR: AJ SUAREZ MD BIRTHDATE: [birth year] DOS: 02/25/2018 HISTORY OF PRESENT ILLNESS: This patient is 82 years old, known to me from the last admission to the hospital. The patient was admitted here last with diastolic CHF. She has had a stress test about 2 weeks ago and does not know the results, came into the Emergency Room yesterday with acute onset of shortness of breath, which has increased over the last few days. She denies having any chest pains or palpitations. She arrived to the Emergency Room. She was quite hypoxic, was placed on BiPAP and she desaturated on the BiPAP. At that time, the family and the patient agreed on a DNR-CC comfort care and the family decided to put her on hospice. This morning, the patient is awake and alert and oriented, sitting up, breathing a little bit more easier and wants to take medications if it would help her. She denied having any chest pains or palpitations. PAST MEDICAL HISTORY: Significant for; 1. Recent hospitalization for CHD. 2. Stress test done 2 weeks ago showing no perfusion defects with an ejection fraction of 60%. 3. Moderate to severe mitral regurgitation. 4. Leukocytosis of unknown etiology 5. Iron deficiency anemia. MEDICATIONS: Have been levothyroxine, metoprolol, hydralazine and Lasix. SOCIAL HISTORY: Nonsmoker. Does not use any alcohol. Lives at home. PHYSICAL EXAMINATION: GENERAL: She is awake and alert and oriented, in mild respiratory distress, sitting up with a nonrebreather. LUNGS: Diminished breath sounds, a few scattered rales. HEART: Regular with a systolic murmur. ABDOMEN: Soft, scaphoid. EXTREMITIES: Trace edema. ASSESSMENT AND PLAN: 1. The patient admitted with acute hypoxic respiratory failure, most likely from underlying congestive heart failure. The patient is placed on IV diuretics. The patient was placed on hospice, but I do not feel that the patient is an ideal candidate for hospice right now. Inpatient palliative care could be a consideration, but the patient wanted to take medications if it would help her, so I have canceled the hospice and started her on medical management. Dr. Fung also will be consulted. 2. Lactic acidosis with elevated white cell count, possibly from underlying infectious process. The patient also has had a chronic elevation of white cell count. She is not on any steroids. We will continue following that after routine labs will be ordered. IV steroids have been ordered. Urine culture will be sent. 3. Chronic obstructive pulmonary disease, stable without any major exacerbation, but DuoNebs will be started. [place], [place] PATIENT HISTORY AND PHYSICAL EXAM NAME: KENYETTA JOYCE UNIT #: [id number] ROOM: [facility] DOCTOR: AJ SUAREZ MD BIRTHDATE: [birth year] 4. Xivqdukk-lt-wcukby mitral regurgitation. Ischemia was ruled out with a negative stress test. AJ SUAREZ MD CM:HISPHYS:PATIENT HISTORY AND PHYSICAL EXAMINATION [id number] AJ SUAREZ MD 02/27/18 6495 interface
[~2018-02-24 17:12] MED LIST changes: -APRESOLINE25 MG PO; -ASPIRIN81 M1 PO; -CEFUROXIME AXE250 MG PO; -CYPROHEPTADINE H4 M1 PO; -IMDUR SA30 MG PO; -Ipratropium Brom3 ML NEB; -KLOR-CON M2020 ME1 PO; -LASIX40 MG PO; -LEVOXYL75 MCG PO; -TENORMIN25 M1 PO
[2018-02-24 18:02] LABS: HEMATOCRIT 33.7 % (37.0-47.0); MEAN CELL VOLUME 93.1 fl (81.0-99.0); MEAN CORPUSCULAR HGB 27.6 pg (27.0-31.0); MEAN CORPUSCULAR HGB CONC 29.7 g/dl (33.0-37.0); MEAN PLATELET VOLUME 9.2 fl (9.6-12.3); PLATELET COUNT AUTOMATED 866 10*3/uL (130-400); RED BLOOD COUNT 3.62 10*6/uL (4.10-5.10); RED CELL DISTRI WIDTH 17.9 % (0-14.5); WHITE BLOOD COUNT 19.6 10*3/uL (4.8-10.8)
[2018-02-24 18:20] LABS: ALBUMIN 3.3 gm/dl (3.1-4.5); CREATININE 1.83 mg/dL (0.55-1.02); POTASSIUM 4.4 mmol/L (3.5-5.1); TROPONIN I 0.043 ng/ml (<0.045)
[2018-02-24 18:22] LABS: BASOPHILS 1 % (0-1); TOTAL CELLS COUNTED 100 #CELLS
[2018-02-24 18:23] LABS: BURR CELLS MANY; PLATELET SUFFICIENCY HIGH (NORMAL); POLYCHROMASIA SLIGHT
[2018-02-24 18:23] LABS: ABG BASE EXCESS -11.4 mmol/L (-2.0-2.0); ABG HCO3 17.4 mmol/l (22-26); ABG O2 SATURATION 90.1 % (95-97); ARTERIAL BLOOD GAS PCO2 55.5 mmHg (35-45); ARTERIAL BLOOD GAS PO2 79.8 mmHg (80-90)
[2018-02-24 18:28] LABS: ARTERIAL BLOOD GAS PH 7.123 (7.35-7.45)
[2018-02-25] MEDS ORDERED: ASPIRIN81 M1 PO (10:04)
[2018-02-25] MEDS ORDERED: NORVASC5 MG PO (10:04)
[2018-02-25] MEDS ORDERED: VITAMIN D31000 UNI1 PO (10:04)
[2018-02-25] MEDS ORDERED: RESTASIS1 EACH OP (10:05)
[2018-02-25] MEDS ORDERED: LEVOXYL75 MCG PO (10:05)
[2018-02-25] MEDS ORDERED: TENORMIN25 M1 PO (10:06)
[2018-02-25] MEDS ORDERED: IBUPROFEN600 MG PO (10:07)
[2018-02-25] MEDS ORDERED: CYPROHEPTADINE H4 M1 PO (10:20)
== END 2018-02-24 23:45 | disposition hospice, home (50) | DRG 189 ==
LOC: ED 17:12 → EDHOLD 21:26 → 4E 21:54
PROVIDERS: Physician Assistant
PROC: 5A09357 Assistance with Respiratory Ventilation, Less than 24 Consecutive Hours, Continuous Positive Airway Pressure (ICD-10-PCS; principal; 2018-02-24)
DX: J96.00 Acute respiratory failure, unspecified whether with hypoxia or hypercapnia (principal); J44.9 Chronic obstructive pulmonary disease, unspecified; I50.9 Heart failure, unspecified; Z79.82 Long term (current) use of aspirin; Z79.899 Other long term (current) drug therapy; Z98.51 Tubal ligation status; Z98.49 Cataract extraction status, unspecified eye; Z80.9 Family history of malignant neoplasm, unspecified; Z83.3 Family history of diabetes mellitus; Z82.49 Family history of ischemic heart disease and other diseases of the circulatory system; Z66 Do not resuscitate

== ENCOUNTER 2018-02-25 00:10 | Inpatient (IN) | payer OTHER, MEDICAID ==
[~2018-02-25] VITALS: Ht 157.5 cm; Wt 51.9 kg
--- NOTE | ~2018-02-25 | WRIGHTHP ---
[place], [place] PATIENT HISTORY AND PHYSICAL EXAM [id number] UNIT #: [id number] ROOM: 409 DOCTOR: AJ SUAREZ MD BIRTHDATE: [birth year] DOS: 02/25/2018 HISTORY OF PRESENT ILLNESS: This patient is 82 years old, known to me from the last admission to the hospital. The patient was admitted here last with diastolic CHF. She has had a stress test about 2 weeks ago and does not know the results, came into the Emergency Room yesterday with acute onset of shortness of breath, which has increased over the last few days. She denies having any chest pains or palpitations. She arrived to the Emergency Room. She was quite hypoxic, was placed on BiPAP and she desaturated on the BiPAP. At that time, the family and the patient agreed on a DNR-CC comfort care and the family decided to put her on hospice. This morning, the patient is awake and alert and oriented, sitting up, breathing a little bit more easier and wants to take medications if it would help her. She denied having any chest pains or palpitations. PAST MEDICAL HISTORY: Significant for; 1. Recent hospitalization for CHD. 2. Stress test done 2 weeks ago showing no perfusion defects with an ejection fraction of 60%. 3. Moderate to severe mitral regurgitation. 4. Leukocytosis of unknown etiology 5. Iron deficiency anemia. MEDICATIONS: Have been levothyroxine, metoprolol, hydralazine and Lasix. SOCIAL HISTORY: Nonsmoker. Does not use any alcohol. Lives at home. PHYSICAL EXAMINATION: GENERAL: She is awake and alert and oriented, in mild respiratory distress, sitting up with a nonrebreather. LUNGS: Diminished breath sounds, a few scattered rales. HEART: Regular with a systolic murmur. ABDOMEN: Soft, scaphoid. EXTREMITIES: Trace edema. ASSESSMENT AND PLAN: 1. The patient admitted with acute hypoxic respiratory failure, most likely from underlying congestive heart failure. The patient is placed on IV diuretics. The patient was placed on hospice, but I do not feel that the patient is an ideal candidate for hospice right now. Inpatient palliative care could be a consideration, but the patient wanted to take medications if it would help her, so I have canceled the hospice and started her on medical management. Dr. Fung also will be consulted. 2. Lactic acidosis with elevated white cell count, possibly from underlying infectious process. The patient also has had a chronic elevation of white cell count. She is not on any steroids. We will continue following that after routine labs will be ordered. IV steroids have been ordered. Urine culture will be sent. 3. Chronic obstructive pulmonary disease, stable without any major exacerbation, but DuoNebs will be started. [place], [place] PATIENT HISTORY AND PHYSICAL EXAM NAME: KENYETTA JOYCE UNIT #: [id number] ROOM: [facility] DOCTOR: AJ SUAREZ MD BIRTHDATE: [birth year] 4. Ehrketvx-ip-xuxhpq mitral regurgitation. Ischemia was ruled out with a negative stress test. AJ SUAREZ MD CM:HISPHYS:PATIENT HISTORY AND PHYSICAL EXAMINATION 0712 [id number] AJ SUAREZ MD 02/27/18 1310 ROBER RAPP.TM
[2018-02-25] MEDS ORDERED: VITAMIN D31000 UNI1 PO (10:04)
[2018-02-25] MEDS ORDERED: NORVASC5 MG PO (10:04)
[2018-02-25] MEDS ORDERED: ASPIRIN81 M1 PO (10:04)
[2018-02-25] MEDS ORDERED: RESTASIS1 EACH OP (10:05)
[2018-02-25] MEDS ORDERED: LEVOXYL75 MCG PO (10:05)
[2018-02-25] MEDS ORDERED: TENORMIN25 M1 PO (10:06)
[2018-02-25] MEDS ORDERED: IBUPROFEN600 MG PO (10:07)
[2018-02-25] MEDS ORDERED: CYPROHEPTADINE H4 M1 PO (10:20)
== END 2018-02-25 07:46 | disposition short-term general hospital (02) | DRG 189 ==
LOC: 4E 00:10
PROC: 5A09357 Assistance with Respiratory Ventilation, Less than 24 Consecutive Hours, Continuous Positive Airway Pressure (ICD-10-PCS; principal; 2018-02-25)
DX: J96.01 Acute respiratory failure with hypoxia (principal); E87.2 Acidosis; I50.30 Unspecified diastolic (congestive) heart failure; I34.0 Nonrheumatic mitral (valve) insufficiency; J44.9 Chronic obstructive pulmonary disease, unspecified; D72.829 Elevated white blood cell count, unspecified; Z66 Do not resuscitate; Z51.5 Encounter for palliative care

== ENCOUNTER 2018-02-25 07:50 | Inpatient (IN) | payer OTHER, MEDICAID ==
[~2018-02-25] VITALS: Ht 157.5 cm; Wt 50.5 kg
--- NOTE | ~2018-02-25 | PR ---
[place], [place] PROGRESS NOTE NAME: KENYETTA JOYCE UNIT #: [id number] ROOM: 409 DOCTOR: AJ SUAREZ MD BIRTHDATE: [birth year] DOS: 02/26/2018 SUBJECTIVE: The patient had a fairly good night. She does not have any complaints. She is breathing much easier. OBJECTIVE: VITAL SIGNS: Blood pressure is 127/69, pulse of 86, respirations 18, temperature 97.9. LUNGS: Diminished breath sounds. HEART: Regular. ABDOMEN: Obese, soft, nontender. EXTREMITIES: Without any edema. Intake, output for the last 24 hours are negative balance of 1410. ASSESSMENT AND PLAN: 1. Acute congestive heart failure, diastolic. The patient is on IV diuretics. 2. Chest x-ray showing possible small atelectasis, pneumonia, and lactic acidosis. IV antibiotics were ordered. 3. Moderate mitral regurgitation. Stress test was negative, ischemia ruled out. AJ SUAREZ MD CM:PNTRANS [id number] AJ SUAREZ MD 02/26/18 2332 interface
--- NOTE | ~2018-02-25 | PR ---
[place], [place] PROGRESS NOTE [id number] UNIT #: [id number] ROOM: 409 DOCTOR: JOSE R LEONG MD BIRTHDATE: [birth year] DOS: 02/27/2018 CARDIOLOGY PROGRESS NOTE SUBJECTIVE: The patient was seen at her bedside today February 27, 2018, with family in attendance. Her daughter and sister were both in the room as I examined her. She is an 82-year-old woman who does have a history of valvular heart disease with moderate to severe mitral insufficiency and recurrent heart failure. She was hospitalized 1 month ago and treated medically and allowed to go home. She returns now with recurrent heart failure and possible pneumonia. She was diuresed overnight and feels considerably better. She is breathing easily today and denies cough, fevers or chills. In the hospital, she has been placed on hydralazine and furosemide and does seem to be doing much better. I note, upon review of her admission medications that she was still on ibuprofen for possible rheumatoid arthritis. Given her valvular heart disease and heart failure, this most likely worsens her failure. PHYSICAL EXAMINATION: VITAL SIGNS: Today, her pulse is 73 and regular, blood pressure is 142/77. She is afebrile. NECK: Supple. She has no jugular distention. Carotids are full. She has no thyromegaly. LUNGS: Respirations are unlabored. Her chest has decreased breath sounds at the bases, but no wheezes or rales. She has no presacral edema. HEART: Has a regular rhythm. She has a grade 2/6 low pitched holosystolic murmur at the apex. No diastolic murmurs are present. The PMI is not displaced. There is no precordial heave, lift or thrill. ABDOMEN: Soft. EXTREMITIES: Showed trace edema. IMPRESSION: 1. Recurrent congestive heart failure. 2. Possible left lower lobe pneumonia. 3. Valvular heart disease with moderate to severe mitral insufficiency and recurrent heart failure. PLAN: I would avoid nonsteroidal anti-inflammatory drugs in her management in the future. This may limit her options for pain control, but the nonsteroidals are likely to impair renal function and result in salt and water retention. We have placed her on hydralazine and we will add nitrates as unloading agents. I would keep her on a potent loop diuretic. Given her age and frailty, I think that she would be a poor candidate for surgical repair of her mitral valve and therefore, I would suggest medical management as long as possible. I have discussed this with the patient and her daughter and they agree that a conservative approach is the most appropriate. I thank Dr. Limon and Dr. Campo for asking our advice regarding the patient's care. [place], [place] PROGRESS NOTE NAME: KENYETTA JOYCE UNIT #: [id number] ROOM: 409 DOCTOR: JOSE R LEONG MD BIRTHDATE: [birth year] JOSE R LEONG MD CM:ANGEL [id number] JOSE R LEONG MD 02/28/18 0244 interface
--- NOTE | ~2018-02-25 | DS ---
[place], [place] DISCHARGE SUMMARY NAME: KENYETTA JOYCE UNIT #: [id number] ROOM: 409 DOCTOR: AJ SUAREZ MD BIRTHDATE: [birth year] DOS: 03/01/2018 HOSPITAL COURSE: The patient is 82 years old. The patient comes in with complaints of acute onset of shortness of breath. Please refer to H and P for details. She was found to be in congestive heart failure and hypoxic and was placed on BiPAP. The patient was a DNR-CC comfort care and so the family discussed with the ER staff and made the patient hospice. She was admitted under Hospice. In a few hours, the patient improved dramatically with shortness of breath much improved with correction of the CHF. So, hospice was discontinued. The patient was placed on a regular admission. The patient was placed on IV diuretics, breathing treatments, oxygen supplementation, hydralazine and nitrates as well as her metoprolol and aspirin. The patient's ibuprofen was discontinued because of iron deficiency anemia and supplements IV and p.o. has been started. Blood cultures show no bacterial growth. B12, folic acid have been normal. The patient does have bilateral atelectasis and has been placed on IV antibiotics, which has been converted to p.o. A recent stress test was negative. She does have rokaqgwc-if-rqprru MR, but not a surgical candidate. The patient and the family have requested conservative management. PT, OT and Social Service has been consulted and the patient is stable enough to go to rehabilitation. The plan is to discharge her to [facility] today. She does have chronic elevation of white cell count of unknown etiology. The white cell count has come down. At admission, it was 19.6 and it has come down to 12.6. We will continue to follow that up, whether this is related to underlying bone marrow pathology or whether it is purely related to her ongoing infectious process is unknown. Blood cultures have come back negative. The patient will have a CBC, basic and a chest x-ray on Tuesday. PT/OT will be consulted. The patient will have low sodium diet. Hemoccults x 3. DISCHARGE MEDICATIONS: Iron 325 daily, breathing treatments DuoNeb q.6, hydralazine 25 t.i.d., isosorbide 30 daily, potassium 20 daily, Ceftin 250 twice a day, Lasix 40 daily, vitamin D 1000 units daily, aspirin 81 daily, Restasis to each eye twice a day, levothyroxine 25 mcg daily, atenolol 25 at bedtime, cyproheptadine 4 mg t.i.d. DISCHARGE DIAGNOSES: 1. Acute congestive heart failure. 2. Acute hypoxic respiratory failure, which is resolved. 3. Atelectasis with possibility of underlying pneumonia. 4. Adult failure to thrive. 5. Moderate to severe mitral regurg with a negative stress test and normal ejection fraction. 6. Iron deficiency anemia. 7. Leukocytosis. 8. Lactic acidosis. 9. Chronic obstructive pulmonary disease. [place], [place] DISCHARGE SUMMARY NAME: KENYETTA JOYCE UNIT #: [id number] ROOM: [facility] DOCTOR: AJ SUAREZ MD BIRTHDATE: [birth year] AJ SUAREZ MD CM:YURI [id number] AJ SUAREZ MD 03/01/18 0914 interface
--- NOTE | ~2018-02-25 | PR ---
[place], [place] PROGRESS NOTE NAME: KENYETTA JOYCE UNIT #: [id number] ROOM: 409 DOCTOR: AJ SUAREZ MD BIRTHDATE: [birth year] DOS: 03/01/2018 SUBJECTIVE: The patient is ambulating to the bathroom without any shortness of breath. Does not have any new complaints. OBJECTIVE: VITAL SIGNS: Blood pressure is 137/75, pulse of 79, respirations 18, temperature 98.0. LUNGS: Diminished breath sounds, clear. HEART: Regular. ABDOMEN: Obese, soft, nontender. EXTREMITIES: Without any edema. LABORATORY DATA: None available as of today. Yesterday's labs showed a potassium of 3.4, BUN was 42, creatinine was 1.34, glucose was 78, WBC count is 12.6, hemoglobin 10.1, hematocrit 33.9, platelets 601. ASSESSMENT AND PLAN: 1. Congestive heart failure, acute, stable without any new problems. Congestive heart failure seems to be improving on chest x-ray as well as clinically. 2. Moderate to severe mitral regurgitation. Conservative medical management. 3. Adult failure to thrive. Transferred to [facility] today. AJ SUAREZ MD CM:PNTRANS [id number] AJ SUAREZ MD 03/01/18 1724 interface
--- NOTE | ~2018-02-25 | CON ---
[place], [place] REPORT OF CONSULTATION NAME: KENYETTA JOYCE UNIT #: [id number] ROOM: 409 DOCTOR: ED WANG MD BIRTHDATE: [birth year] DOS: 02/25/2018 CARDIOLOGY CONSULTATION REASON FOR CONSULTATION: CHF and shortness of breath. HISTORY OF PRESENT ILLNESS: The patient is an 82-year-old patient with history of valvular heart disease, hypertension, peripheral vascular disease, anemia, presents to the Emergency Room for shortness of breath and edema of the feet. She was in the hospital a month ago for dyspnea and fatigue and she was found to have significant valvular heart disease. She underwent a 2D echo and stress test and was discharged home. She denies any chest pain, palpitation or dizziness. No nausea, vomiting, or diarrhea. Her main complaint is shortness of breath on exertion, but no PND or orthopnea. No hemoptysis, no cough, no hematemesis. No bladder or bowel symptoms. No headache. No tingling, numbness or weakness. She was admitted for hypoxemic acute respiratory failure as well as urinary tract infection and Cardiology was consulted for her congestive heart failure. At the time of my examination, the patient is slightly short of breath, but denies any chest pain or palpitation, no PND, no orthopnea. REVIEW OF SYSTEMS: Review of the 10 system negative except as mentioned above. PAST MEDICAL HISTORY: 1. Valvular heart disease with mitral regurgitation. 2. Hypertension. 3. Peripheral vascular disease status post carotid endarterectomy. 4. Anemia. 5. Chronic kidney disease. 6. Hypothyroidism. 7. COPD. SURGICAL HISTORY: History of carotid endarterectomy. SOCIAL HISTORY: The patient does not smoke or drink, does not use drugs. FAMILY HISTORY: Nil contributory due to her age. ALLERGIES: Reviewed. HOME MEDICATIONS: Reviewed. PHYSICAL EXAMINATION: VITAL SIGNS: Blood pressure 156/80, pulse 90, respiratory rate is 18, weight 51.9 kilos, BMI 21. GENERAL: Alert, comfortable, slightly short of breath. HEENT: Pupils are round and equal. No jaundice. Tongue was moist and pharynx clear. NECK: Supple. No distended neck veins. No carotid bruit. CHEST: Symmetrical, nontender. LUNGS: The patient had diminished breath sounds in the left and right side at [place], [place] REPORT OF CONSULTATION NAME: KENYETTA JOYCE UNIT #: [id number] ROOM: 409 DOCTOR: ED WANG MD BIRTHDATE: [birth year] the bases and also few scattered rhonchi. HEART: Regular rhythm, no S3. The patient had a grade 2/6 systolic murmur. No palpable thrills. ABDOMEN: Benign, nontender. Bowel sounds normal. EXTREMITIES: Showed 1+ edema. Distal pulses are palpable. SKIN: Warm and dry. No cyanosis, no clubbing. RECTAL: Deferred. GENITOURINARY: Deferred. NEUROLOGIC: The patient is alert, oriented. No focal neurologic deficit. MUSCULOSKELETAL: No joint tenderness or swelling. REVIEW OF THE DIAGNOSTIC TESTS: EKG, imaging studies and labs reviewed. The pertinent labs include troponin 0.04. ProBNP 46,540, BUN 27, creatinine 1.83, potassium 4.4. WBC count 19.6 thousand, platelets 866,000, and hemoglobin 10. Chest x-ray showed pulmonary edema. Echo from January 27, 2018, showed moderate to severe mitral regurgitation, EF 45%-50%, mild tricuspid regurgitation, mild aortic regurgitation. Stress test on February 06, 2018, negative for ischemia, EF 60%. IMPRESSION: 1. Pulmonary edema. 2. Valvular heart disease with moderate to severe mitral regurgitation as well as mild tricuspid and mild aortic regurgitation. 3. Chronic anemia. 4. Hypoxic respiratory failure. 5. Chronic kidney disease. 6. Urinary tract infection. 7. Small pericardial effusion by echo. 8. Hypertension. 9. Peripheral vascular disease status post carotid endarterectomy in 2011. 10. Raynaud's disease. 11. Hypothyroidism. RECOMMENDATIONS: 1. Continue IV Lasix 60 mg daily, monitor daily weights, in and outs, renal function and blood pressures. 2. Continue her blood pressure medication including metoprolol and hydralazine. 3. If the patient's symptoms gets worse, she will need reevaluation of mitral valve with possibly STEPHEN. 4. If symptomatically she gets worse, then refer her to [facility] for evaluation of mitral valve surgery. 5. Continue to monitor heart rates, blood pressures and renal function as well as hemoglobin. 6. The above treatment and plan discussed with the patient and her several family members including her son and daughter. [place], [place] REPORT OF CONSULTATION NAME: KENYETTA JOYCE UNIT #: [id number] ROOM: 409 DOCTOR: KATHLEEN DORSEY,ED BIRTHDATE: [birth year] ED WANG MD CM:CONSTR:REPORT OF CONSULTATION 11 02/27/18 0901 interface
--- NOTE | ~2018-02-25 | PR ---
[place], [place] PROGRESS NOTE NAME: KENYETTA JOYCE UNIT #: [id number] ROOM: 409 DOCTOR: AJ SUAREZ MD BIRTHDATE: [birth year] DOS: 02/27/2018 SUBJECTIVE: The patient looks much better, sitting up in her bed and breathing easy. OBJECTIVE: VITAL SIGNS: Graphic trend shows a pressure 136/81, pulse of 82, respirations 19, temperature 98.3. LUNGS: Diminished breath sounds, clear. HEART: Regular. ABDOMEN: Soft. EXTREMITIES: Without any edema. LABORATORY DATA: Iron was 20. B12 is normal. Ferritin is low at 47.2. Folic acid is normal. Blood culture shows no bacterial growth. WBC count is 14.1, hemoglobin 8.5, hematocrit 28.5, platelets 569. BMP: Glucose 86, BUN 44, creatinine 1.54. Electrolytes were normal. ASSESSMENT AND PLAN: 1. Acute congestive heart failure on IV diuretics. She is diuresing nicely. Chest x-ray will be ordered. 2. Iron deficiency anemia, iron supplements will be ordered IV for right now. Hemoccult is also being checked. 3. Moderate to severe mitral regurgitation. I am awaiting cardiology opinion as regards to further treatment plan. Ischemia ruled out with a negative stress test recently. 4. Chronic elevation of white cell count, unknown etiology. We will have her placed on antibiotics. It did come down slightly. The cultures are negative, so whether this is related to an infection is not known yet. We will continue to monitor closely. AJ SUAREZ MD CM:PNTRANS [id number] AJ SUAREZ MD 02/28/18 0000 interface
--- NOTE | ~2018-02-25 | PR ---
[place], [place] PROGRESS NOTE NAME: KENYETTA JOYCE UNIT #: [id number] ROOM: 409 DOCTOR: AJ SUAREZ MD BIRTHDATE: [birth year] DOS: 02/28/2018 SUBJECTIVE: The patient is doing much better. Appreciate Dr. Fung's input. OBJECTIVE: VITAL SIGNS: Graphic trend shows pressure 153/63, pulse is 72, respirations 18, temperature 97.6. LUNGS: Clear. HEART: Regular. ABDOMEN: Obese, soft. EXTREMITIES: Without any edema. LABORATORY DATA: White cell count is 12.6, hemoglobin is 10.1, hematocrit 33.9, platelets 601. ASSESSMENT AND PLAN: 1. Congestive heart failure, acute, with osxiyysw-pv-vuojdj mitral regurgitation. Cardiology feels that the patient is not an operative candidate, so I would continue conventional management. Chest x-ray shows clearing of her failure. 2. Bilateral pneumonia, on IV antibiotics. Blood cultures are negative. 3. Iron deficiency anemia, possibly from nonsteroidal usage, which has been discontinued. The patient has been placed on IV iron infusions. Hemoccults were ordered. I do not have the results yet. 4. Adult failure to thrive, awaiting placement to rehab, hopefully tomorrow, she can be discharged. AJ SUAREZ MD CM:PNTRANS [phone] [id number] AJ SUAREZ MD 02/28/18 2007 interface
--- NOTE | ~2018-02-25 | PR ---
[place], [place] PROGRESS NOTE NAME: KENYETTA JOYCE UNIT #: [id number] ROOM: 409 DOCTOR: KATHLEEN DORSEY,ED BIRTHDATE: [birth year] DOS: 02/26/2018 CARDIOLOGY FOLLOWUP VISIT NOTE REASON FOR VISIT: Congestive heart failure and valvular heart disease. SUBJECTIVE: The patient is feeling much better, less short of breath. Denies any chest pain. No PND, no orthopnea, no palpitations. Her edema is mostly resolved. REVIEW OF SYSTEMS: Review of the 10 systems negative except as mentioned above. PHYSICAL EXAMINATION: VITAL SIGNS: Blood pressure 150/78, respiratory rate was 20, pulse 83. The patient has a negative 1410 mL. RHYTHM STRIP: Patient in sinus rhythm. GENERAL: The patient is alert, comfortable, in no acute distress. HEAD AND NECK: Pupils are round and equal. No jaundice. Tongue was moist. Neck is supple, no distended neck veins, no carotid bruit. CHEST: Symmetrical, nontender. LUNGS: A few scattered rhonchi, diminished at bases. HEART: Regular rhythm, no S3, and grade 2/6 systolic murmur at the apical area. No palpable thrills. ABDOMEN: Benign, nontender. Bowel sounds normal. EXTREMITIES: Showed trace edema and distal pulses palpable. SKIN: Warm and dry. No cyanosis, no clubbing. RECTAL: Deferred. LABORATORY DATA: Reviewed. Pertinent labs include hemoglobin 8.7 and creatinine 1.9. IMPRESSION: 1. Acute pulmonary edema, resolved. 2. Acute on chronic diastolic heart failure. 3. Moderate to severe mitral regurgitation. 4. Severe anemia. 5. Chronic kidney disease. 6. Peripheral vascular disease status post carotid endarterectomy. 7. Hypothyroidism. 8. Raynaud's disease. RECOMMENDATIONS: 1. Decrease the Lasix to 40 mg IV due to her slightly increase in creatinine and her congestive heart failure has mostly resolved. 2. Continue to monitor heart rates and blood pressures. 3. Monitor renal function and hemoglobin. Try to keep her hemoglobin greater than 8.5. 4. If her symptoms get worse, consider STEPHEN to reevaluate her mitral valve and refer to [facility] to consider for mitral valve replacement. 5. Try to wean off her oxygen and she may need to go home on home oxygen. [place], [place] PROGRESS NOTE NAME: KENYETTA JOYCE UNIT #: [id number] ROOM: 409 DOCTOR: KATHLEEN DORSEY,ED BIRTHDATE: [birth year] 6. Above treatment and plan was discussed at length with patient as well as several family members. ED WANG MD CM:ANGEL [id number] [phone] ED WANG MD [id number] interface
[2018-02-25 08:00] VITALS: BP 169/84
[2018-02-25] MEDS ORDERED: VITAMIN D31000 UNI1 PO (10:04)
[2018-02-25] MEDS ORDERED: NORVASC5 MG PO (10:04)
[2018-02-25] MEDS ORDERED: ASPIRIN81 M1 PO (10:04)
[2018-02-25] MEDS ORDERED: LEVOXYL75 MCG PO (10:05)
[2018-02-25] MEDS ORDERED: RESTASIS1 EACH OP (10:05)
[2018-02-25] MEDS ORDERED: TENORMIN25 M1 PO (10:06)
[2018-02-25] MEDS ORDERED: IBUPROFEN600 MG PO (10:07)
[2018-02-25] MEDS ORDERED: CYPROHEPTADINE H4 M1 PO (10:20)
[2018-02-25 12:00] VITALS: BP 156/83
[2018-02-25 16:00] VITALS: BP 157/85
[2018-02-25 20:25] VITALS: BP 166/82
[2018-02-26] VITALS: BP 127/69
[2018-02-26 06:52] LABS: BASO % 0.1 % (0.0-1.0); HEMATOCRIT 29.2 % (37.0-47.0); HEMOGLOBIN 8.7 g/dl (12.0-16.0); LYMPH # 1.5 10*3/uL (1.3-4.4); LYMPH % 9.4 % (27.0-41.0); MEAN CELL VOLUME 90.1 fl (81.0-99.0); MEAN CORPUSCULAR HGB 26.9 pg (27.0-31.0); MEAN CORPUSCULAR HGB CONC 29.8 g/dl (33.0-37.0); MEAN PLATELET VOLUME 9.3 fl (9.6-12.3); MONO # 0.9 10*3/uL (0.1-1.0); MONO % 5.6 % (3.0-9.0); NEUT # 13.4 10*3/uL (2.3-7.9); NEUT % 84.3 % (47.0-73.0); PLATELET COUNT AUTOMATED 654 10*3/uL (130-400); RED BLOOD COUNT 3.24 10*6/uL (4.10-5.10); RED CELL DISTRI WIDTH 17.8 % (0-14.5); WHITE BLOOD COUNT 15.8 10*3/uL (4.8-10.8)
[2018-02-26 07:28] LABS: CREATININE 1.9 mg/dL (0.55-1.02); POTASSIUM 4.1 mmol/L (3.5-5.1)
[2018-02-26 08:00] VITALS: BP 152/78
[2018-02-26 08:21] LABS: FERRITIN 47.2 ng/mL (10.0-291.0)
[2018-02-26 12:00] VITALS: BP 144/70
[2018-02-26 16:00] VITALS: BP 141/68
[2018-02-26 20:00] VITALS: BP 167/80
[2018-02-27] VITALS: BP 136/81
[2018-02-27 06:25] LABS: BASO % 0.1 % (0.0-1.0); EOS # 0.1 10*3/uL (0.0-0.4); EOS % 0.6 % (1.0-4.0); HEMATOCRIT 28.5 % (37.0-47.0); HEMOGLOBIN 8.5 g/dl (12.0-16.0); LYMPH # 2.5 10*3/uL (1.3-4.4); LYMPH % 17.6 % (27.0-41.0); MEAN CELL VOLUME 89.6 fl (81.0-99.0); MEAN CORPUSCULAR HGB 26.7 pg (27.0-31.0); MEAN CORPUSCULAR HGB CONC 29.8 g/dl (33.0-37.0); MONO # 1.1 10*3/uL (0.1-1.0); MONO % 7.7 % (3.0-9.0); NEUT # 10.4 10*3/uL (2.3-7.9); NEUT % 73.5 % (47.0-73.0); PLATELET COUNT AUTOMATED 569 10*3/uL (130-400); RED BLOOD COUNT 3.18 10*6/uL (4.10-5.10); RED CELL DISTRI WIDTH 17.6 % (0-14.5); WHITE BLOOD COUNT 14.1 10*3/uL (4.8-10.8)
[2018-02-27 07:00] LABS: CREATININE 1.54 mg/dL (0.55-1.02); POTASSIUM 3.6 mmol/L (3.5-5.1)
[2018-02-27 08:00] VITALS: BP 142/77
[2018-02-27 12:00] VITALS: BP 135/55
[2018-02-27 16:00] VITALS: BP 136/65
[2018-02-27 20:00] VITALS: BP 163/79
[2018-02-28] VITALS: BP 151/81
[2018-02-28 05:39] VITALS: BP 153/63
[2018-02-28 07:36] LABS: BASO % 0.2 % (0.0-1.0); EOS # 0.3 10*3/uL (0.0-0.4); EOS % 2.4 % (1.0-4.0); HEMATOCRIT 33.9 % (37.0-47.0); HEMOGLOBIN 10.1 g/dl (12.0-16.0); LYMPH # 2.6 10*3/uL (1.3-4.4); LYMPH % 20.6 % (27.0-41.0); MEAN CELL VOLUME 89.4 fl (81.0-99.0); MEAN CORPUSCULAR HGB 26.6 pg (27.0-31.0); MEAN CORPUSCULAR HGB CONC 29.8 g/dl (33.0-37.0); MONO # 1.1 10*3/uL (0.1-1.0); MONO % 8.4 % (3.0-9.0); NEUT # 8.5 10*3/uL (2.3-7.9); NEUT % 67.8 % (47.0-73.0); PLATELET COUNT AUTOMATED 601 10*3/uL (130-400); RED BLOOD COUNT 3.79 10*6/uL (4.10-5.10); RED CELL DISTRI WIDTH 17.6 % (0-14.5); WHITE BLOOD COUNT 12.6 10*3/uL (4.8-10.8)
[2018-02-28 07:51] LABS: CREATININE 1.34 mg/dL (0.55-1.02); POTASSIUM 3.4 mmol/L (3.5-5.1)
[2018-02-28 08:00] VITALS: BP 128/70
[2018-02-28 12:00] VITALS: BP 97/70
[2018-02-28 16:00] VITALS: BP 136/75
[2018-02-28 20:00] VITALS: BP 124/67
[2018-03-01] VITALS: BP 137/75
[2018-03-01] MEDS ORDERED: IMDUR SA30 MG PO (06:59)
[2018-03-01] MEDS ORDERED: Ipratropium Brom3 ML NEB (06:59)
[2018-03-01] MEDS ORDERED: CEFUROXIME AXE250 MG PO (06:59)
[2018-03-01] MEDS ORDERED: LASIX40 MG PO (06:59)
[2018-03-01] MEDS ORDERED: APRESOLINE25 MG PO (06:59)
[2018-03-01] MEDS ORDERED: KLOR-CON M2020 ME1 PO (06:59)
[2018-03-01 07:05] LABS: BASO % 0.2 % (0.0-1.0); EOS # 0.4 10*3/uL (0.0-0.4); EOS % 2.5 % (1.0-4.0); HEMATOCRIT 28.5 % (37.0-47.0); HEMOGLOBIN 8.7 g/dl (12.0-16.0); LYMPH # 2.6 10*3/uL (1.3-4.4); LYMPH % 17.4 % (27.0-41.0); MEAN CELL VOLUME 89.1 fl (81.0-99.0); MEAN CORPUSCULAR HGB 27.2 pg (27.0-31.0); MEAN CORPUSCULAR HGB CONC 30.5 g/dl (33.0-37.0); MEAN PLATELET VOLUME 9.3 fl (9.6-12.3); MONO # 1.3 10*3/uL (0.1-1.0); NEUT # 10.4 10*3/uL (2.3-7.9); NEUT % 70.1 % (47.0-73.0); PLATELET COUNT AUTOMATED 550 10*3/uL (130-400); RED CELL DISTRI WIDTH 17.8 % (0-14.5); WHITE BLOOD COUNT 14.9 10*3/uL (4.8-10.8)
[2018-03-01 07:26] LABS: ALBUMIN 2.8 gm/dl (3.1-4.5); CREATININE 1.5 mg/dL (0.55-1.02); POTASSIUM 3.5 mmol/L (3.5-5.1); TOTAL PROTEIN 6.6 gm/dL (6.4-8.2)
[2018-03-01 08:00] VITALS: BP 125/54
[2018-03-01 08:11] LABS: RHEUMATOID ARTHRITIS FACTOR 105.8 IU/mL (0.0-13.9)
[2018-03-01 12:00] VITALS: BP 118/101; BP 120/88
[2018-03-02 00:07] LABS: CCP ANTIBODIES IGG/IGA >250 units (0-19)
== END 2018-03-01 14:22 | disposition other institution (70) | DRG 291 ==
LOC: 4E 07:50
PROVIDERS: Internal Medicine; Internal Medicine Cardiovascular Disease
DX: I13.0 Hypertensive heart and chronic kidney disease with heart failure and stage 1 through stage 4 chronic kidney disease, or unspecified chronic kidney disease (principal); J96.01 Acute respiratory failure with hypoxia; E87.2 Acidosis; I50.43 Acute on chronic combined systolic (congestive) and diastolic (congestive) heart failure; J18.1 Lobar pneumonia, unspecified organism; N39.0 Urinary tract infection, site not specified; I73.9 Peripheral vascular disease, unspecified; J44.9 Chronic obstructive pulmonary disease, unspecified; I08.3 Combined rheumatic disorders of mitral, aortic and tricuspid valves; Z66 Do not resuscitate; Z51.5 Encounter for palliative care; R62.7 Adult failure to thrive; D50.9 Iron deficiency anemia, unspecified; E66.9 Obesity, unspecified; N18.9 Chronic kidney disease, unspecified; E03.9 Hypothyroidism, unspecified; I73.00 Raynaud's syndrome without gangrene; Z79.899 Other long term (current) drug therapy; Z68.20 Body mass index [BMI] 20.0-20.9, adult

== ENCOUNTER → 2018-10-04 | Outpatient (CLI) | payer OTHER, MEDICAID ==
[~2018-10-04] MED LIST changes: +APRESOLINE25 MG PO; +ASPIRIN81 M1 PO; +CEFUROXIME AXE250 MG PO; +CYPROHEPTADINE H4 M1 PO; +IMDUR SA30 MG PO; +Ipratropium Brom3 ML NEB; +KLOR-CON M2020 ME1 PO; +LASIX40 MG PO; +LEVOXYL75 MCG PO; +TENORMIN25 M1 PO
== END | disposition home or self-care (01) ==
LOC: CT 10:43
DX: M43.12 Spondylolisthesis, cervical region (principal); M48.02 Spinal stenosis, cervical region; I73.9 Peripheral vascular disease, unspecified

== ENCOUNTER → 2019-04-19 | Outpatient (CLI) | payer OTHER, MEDICAID ==
[~2019-04-19] MED LIST changes: +CARVEDILOL3.125 MG PO; +LUMIGAN50 DRP OU; +MIRTAZAPINE15 M2 PO; +PLAQUENIL200 MG PO; +PLAVIX75 M1 PO; +PREDNISONE5 MG PO; +ROPINIROLE HYDRO1 MG PO; +SERTRALINE HYDR50 MG PO
[2019-04-19 10:04] LABS: BASO # 0.1 10*3/uL (0.0-0.1); BASO % 0.9 % (0.0-1.0); EOS # 0.1 10*3/uL (0.0-0.4); EOS % 1.3 % (1.0-4.0); HEMATOCRIT 28.8 % (37.0-47.0); LYMPH # 1.3 10*3/uL (1.3-4.4); LYMPH % 12.8 % (27.0-41.0); MEAN CELL VOLUME 77.4 fl (81.0-99.0); MEAN CORPUSCULAR HGB 21.5 pg (27.0-31.0); MEAN CORPUSCULAR HGB CONC 27.8 g/dl (33.0-37.0); MEAN PLATELET VOLUME 8.7 fl (9.6-12.3); MONO # 0.7 10*3/uL (0.1-1.0); MONO % 7.4 % (3.0-9.0); NEUT # 7.6 10*3/uL (2.3-7.9); NEUT % 77.1 % (47.0-73.0); NUCLEATED RED BLOOD CELL 0.2 % (0.0-0.0); PLATELET COUNT AUTOMATED 647 10*3/uL (130-400); RED BLOOD COUNT 3.72 10*6/uL (4.10-5.10); RED CELL DISTRI WIDTH 18.4 % (0-14.5); WHITE BLOOD COUNT 9.9 10*3/uL (4.8-10.8)
[2019-04-19 10:43] LABS: POTASSIUM 3.4 mmol/L (3.5-5.1)
[2019-04-19 10:54] LABS: ALBUMIN 3.1 gm/dl (3.1-4.5); CREATININE 1.52 mg/dL (0.55-1.02); FREE T4 1.06 ng/dl (0.76-1.46); THYROID STIM HORMONE (HS) 17.9 uIU/ml (0.358-4.75); TOTAL PROTEIN 6.9 gm/dL (6.4-8.2)
[2019-04-19 11:08] LABS: VITAMIN D, 25-HYDROXY 50.9 ng/mL (30-100)
== END | disposition home or self-care (01) ==
LOC: LAB 09:29
PROVIDERS: Internal Medicine
DX: E55.9 Vitamin D deficiency, unspecified (principal); E78.2 Mixed hyperlipidemia; D52.9 Folate deficiency anemia, unspecified; D51.9 Vitamin B12 deficiency anemia, unspecified; I10 Essential (primary) hypertension

== ENCOUNTER 2019-04-23 12:36 | Emergency (ER) | payer OTHER, MEDICAID ==
[~2019-04-23] VITALS: Ht 154.9 cm; Wt 59.9 kg
[~2019-04-23 12:36] MED LIST changes: -CARVEDILOL3.125 MG PO; -LUMIGAN50 DRP OU; -MIRTAZAPINE15 M2 PO; -PLAQUENIL200 MG PO; -PLAVIX75 M1 PO; -PREDNISONE5 MG PO; -ROPINIROLE HYDRO1 MG PO; -SERTRALINE HYDR50 MG PO
[2019-04-23 12:37] VITALS: BP 119/72
[2019-04-23 15:02] LABS: BASO # 0.1 10*3/uL (0.0-0.1); BASO % 0.6 % (0.0-1.0); EOS # 0.1 10*3/uL (0.0-0.4); EOS % 0.8 % (1.0-4.0); HEMATOCRIT 30.8 % (37.0-47.0); HEMOGLOBIN 8.4 g/dl (12.0-16.0); LYMPH # 1.4 10*3/uL (1.3-4.4); LYMPH % 12.7 % (27.0-41.0); MEAN CORPUSCULAR HGB 21.3 pg (27.0-31.0); MEAN CORPUSCULAR HGB CONC 27.3 g/dl (33.0-37.0); MEAN PLATELET VOLUME 9.2 fl (9.6-12.3); MONO # 0.8 10*3/uL (0.1-1.0); MONO % 6.8 % (3.0-9.0); NEUT # 8.9 10*3/uL (2.3-7.9); NEUT % 78.7 % (47.0-73.0); NUCLEATED RED BLOOD CELL 0.3 % (0.0-0.0); PLATELET COUNT AUTOMATED 596 10*3/uL (130-400); RED BLOOD COUNT 3.95 10*6/uL (4.10-5.10); RED CELL DISTRI WIDTH 18.4 % (0-14.5); WHITE BLOOD COUNT 11.3 10*3/uL (4.8-10.8)
[2019-04-23 15:13] LABS: ACT PARTIAL THROMBO TIME 21.3 SECONDS (20.0-32.1); INTERNATIONAL NORM RATIO 1.1 (2.0-3.5)
[2019-04-23 15:18] LABS: ALBUMIN 3.2 gm/dl (3.1-4.5); CREATININE 1.28 mg/dL (0.55-1.02); POTASSIUM 3.7 mmol/L (3.5-5.1)
[2019-04-23 15:21] LABS: TROPONIN I 0.097 ng/ml (<0.045)
== END 2019-04-23 18:49 | disposition home or self-care (01) ==
LOC: ED 12:36
PROVIDERS: Physician Assistant
DX: S52.614A Nondisplaced fracture of right ulna styloid process, initial encounter for closed fracture (principal); S52.501A Unspecified fracture of the lower end of right radius, initial encounter for closed fracture; S00.93XA Contusion of unspecified part of head, initial encounter; R77.8 Other specified abnormalities of plasma proteins; Z79.899 Other long term (current) drug therapy; Z79.82 Long term (current) use of aspirin; Z60.2 Problems related to living alone; W18.39XA Other fall on same level, initial encounter; Y93.89 Activity, other specified; Y92.89 Other specified places as the place of occurrence of the external cause; Y99.8 Other external cause status

== ENCOUNTER → 2019-05-01 | Outpatient (CLI) | payer OTHER, MEDICAID ==
[~2019-05-01] MED LIST changes: +LUMIGAN50 DRP OU; +PLAQUENIL200 MG PO; +PLAVIX75 M1 PO; +PREDNISONE5 MG PO; +SERTRALINE HYDR50 MG PO
== END | disposition home or self-care (01) ==
LOC: ORTHO 13:10
DX: S52.501D Unspecified fracture of the lower end of right radius, subsequent encounter for closed fracture with routine healing (principal); S52.609D Unspecified fracture of lower end of unspecified ulna, subsequent encounter for closed fracture with routine healing; X58.XXXD Exposure to other specified factors, subsequent encounter

== ENCOUNTER 2019-05-05 18:31 | Inpatient (IN) | payer OTHER, MEDICAID ==
[~2019-05-05] VITALS: Ht 157.5 cm; Wt 61.3 kg
[2019-05-05 18:31] VITALS: BP 116/56
[~2019-05-05 18:31] MED LIST changes: -LUMIGAN50 DRP OU; -PLAQUENIL200 MG PO; -PLAVIX75 M1 PO; -PREDNISONE5 MG PO; -SERTRALINE HYDR50 MG PO
[2019-05-05 19:05] LABS: BASO % 0.1 % (0.0-1.0); EOS % 0.1 % (1.0-4.0); HEMATOCRIT 21.1 % (37.0-47.0); LYMPH # 0.9 10*3/uL (1.3-4.4); LYMPH % 6.5 % (27.0-41.0); MEAN CELL VOLUME 74.3 fl (81.0-99.0); MEAN CORPUSCULAR HGB 20.8 pg (27.0-31.0); MEAN PLATELET VOLUME 9.5 fl (9.6-12.3); MONO # 0.5 10*3/uL (0.1-1.0); MONO % 3.5 % (3.0-9.0); NEUT # 11.6 10*3/uL (2.3-7.9); NEUT % 89.3 % (47.0-73.0); NUCLEATED RED BLOOD CELL 0.2 % (0.0-0.0); PLATELET COUNT AUTOMATED 519 10*3/uL (130-400); RED BLOOD COUNT 2.84 10*6/uL (4.10-5.10); RED CELL DISTRI WIDTH 19.8 % (0-14.5)
[2019-05-05 19:08] LABS: HEMOGLOBIN 5.9 g/dl (12.0-16.0)
[2019-05-05 19:17] LABS: INTERNATIONAL NORM RATIO 1.2 (2.0-3.5)
[2019-05-05 19:19] LABS: ALBUMIN 2.9 gm/dl (3.1-4.5); CREATININE 2.32 mg/dL (0.55-1.02); POTASSIUM 4.9 mmol/L (3.5-5.1); TOTAL PROTEIN 6.9 gm/dL (6.4-8.2)
--- NOTE | 2019-05-05 19:19 | NUR ---
PATIENT'S H/H RESULTS TOLD TO KVNG PATEL.
[2019-05-05 19:23] LABS: TROPONIN I 0.346 ng/ml (<0.045)
[2019-05-05 19:49] LABS: BURR CELLS FEW; MICROCYTOSIS SLIGHT; OVALOCYTES FEW; PLATELET SUFFICIENCY NORMAL (NORMAL); TOTAL CELLS COUNTED 100 #CELLS
[2019-05-05 19:50] LABS: TARGET CELLS FEW
[2019-05-05 20:46] VITALS: BP 112/66
[2019-05-05 21:30] VITALS: BP 109/55
--- NOTE | 2019-05-05 21:30 | NUR ---
A 84, admitted to ICCU, under the services of AJ Santos MD with a diagnosis of anemia, renal failure, generalized weakness, and elevated troponin. Chief complaint is weakness and recent fall. Patient arrived via stretcher from ER. Monitor applied. Initial assessment completed. Vital signs taken and recorded. AJ SANTOS MD notified of admission to the unit. Orders received. See assessment for past medical history, medications and allergies. Patient and/or family oriented to unit. [facility] ICCU visitation policy reviewed. Clothing/patient valuable form completed. SAMMY MARX
--- NOTE | 2019-05-05 22:08 | NUR ---
UNABLE TO CONFIRM MEDICATION LIST WITH DAUGHTER THE PARAMEDICS TOOK HER LIST OF MEDICATIONS WITH THEM AND DID NOT RETURN THEM TO HER AND [place] SO [place] NOT FAMILIAR WITH MEDS. QUINTON PUCKETT RN
--- NOTE | 2019-05-05 22:31 | NUR ---
DR. SUAREZ NOTIFIED OF CT OF THE ABD RESULTS, ORDERS RECEIVED.
--- NOTE | 2019-05-05 23:07 | NUR ---
DR. RON NOTIFIED OF CONSULT, STATED HE WOULD ADVISE PT. BE STABILIZED THEN TRANSFERRED OUT.
--- NOTE | 2019-05-05 23:09 | NUR ---
DR. ERICK MCCAIN OF DR. RON'S RECOMMENDATIONS. NO FURTHER ORDERS RECIEVED. QUINTON PUCKETT RN
[2019-05-06] VITALS (16 sets, daily range): BP systolic 100–132; BP diastolic 48–79
--- NOTE | 2019-05-06 03:35 | NUR ---
, PT. COMPLAINS OF RESTLESS LEGS, MOANING INTERMITTENTLY THROUGHOUT THE NIGHT. STATES THAT THIS IS NOT NEW AND HAS BEEN HAPPENING FOR A WHILE AT HOME. THANKS, QUINTON
--- NOTE | 2019-05-06 04:18 | NUR ---
PT. UP TO BSC, UNABLE TO URINATE. BLADDER SCANNED THREE TIMES FOR LARGEST AMT OF 188CC'S. WILL CONTINUE TO MONITOR.
--- NOTE | 2019-05-06 08:00 | NUR ---
Dr. Limon here to see patient.
[2019-05-06 08:23] LABS: BASO % 0.2 % (0.0-1.0); HEMATOCRIT 32.6 % (37.0-47.0); HEMOGLOBIN 9.8 g/dl (12.0-16.0); LYMPH # 1.1 10*3/uL (1.3-4.4); LYMPH % 6.4 % (27.0-41.0); MEAN CORPUSCULAR HGB 23.4 pg (27.0-31.0); MEAN CORPUSCULAR HGB CONC 30.1 g/dl (33.0-37.0); MEAN PLATELET VOLUME 9.4 fl (9.6-12.3); MONO % 5.5 % (3.0-9.0); NEUT # 15.3 10*3/uL (2.3-7.9); NEUT % 87.4 % (47.0-73.0); NUCLEATED RED BLOOD CELL 0.1 10*3/uL (0.0-0.0); NUCLEATED RED BLOOD CELL 0.3 % (0.0-0.0); PLATELET COUNT AUTOMATED 434 10*3/uL (130-400); RED BLOOD COUNT 4.19 10*6/uL (4.10-5.10); RED CELL DISTRI WIDTH 18.8 % (0-14.5); WHITE BLOOD COUNT 17.5 10*3/uL (4.8-10.8)
[2019-05-06 08:25] LABS: MEAN CELL VOLUME 77.8 fl (81.0-99.0)
[2019-05-06 08:36] LABS: CREATININE 2.52 mg/dL (0.55-1.02); POTASSIUM 4.1 mmol/L (3.5-5.1)
[2019-05-06 08:49] LABS: LIPASE 359 U/L (73-393)
--- NOTE | 2019-05-06 09:00 | NUR ---
DR. RON HERE TO SEE PATIENT
--- NOTE | 2019-05-06 09:25 | NUR ---
DR. LINDQUIST CALLED IN AND UPDATED ON LABS. REPEAT CT ABDOMEN ORDERED WITH PO CONTRAST ONLY. NPO
[2019-05-06 10:13] LABS: FERRITIN 38.9 ng/mL (10.0-291.0)
[2019-05-06] MEDS ORDERED: LUMIGAN50 DRP OU (11:07)
[2019-05-06] MEDS ORDERED: SERTRALINE HYDR50 MG PO (11:09)
[2019-05-06] MEDS ORDERED: PLAQUENIL200 MG PO (11:11)
[2019-05-06] MEDS ORDERED: PLAVIX75 M1 PO (11:12)
[2019-05-06] MEDS ORDERED: PREDNISONE5 MG PO (11:13)
--- NOTE | 2019-05-06 12:00 | NUR ---
Down to x-ray for CT scan abdomen
--- NOTE | 2019-05-06 12:43 | NUR ---
Unable to void. Bladder scanned for 380cc. Harley placed with return of 400cc clear yellow urine. Urine and culture sent to lab as ordered
[2019-05-06 13:12] LABS: BILIRUBIN NEGATIVE (NEGATIVE); BLOOD NEGATIVE (NEGATIVE); CLARITY CLOUDY (CLEAR); COLOR YELLOW (YELLOW); GLUCOSE NEGATIVE (NEGATIVE); KETONE NEGATIVE (NEGATIVE); LEUKO ESTERASE 1+ (NEGATIVE); NITRITE NEGATIVE (NEGATIVE); PH 5.5 (5.0-9.0); SPECIFIC GRAVITY >= 1.030 (1.005-1.030); UROBILINOGEN 0.2 E.U./dl (0.2-1.0)
[2019-05-06 13:22] LABS: BACTERIA TRACE; YEAST 2+
[2019-05-06 13:23] LABS: WBC 21-30 wbc/hpf (0-5)
--- NOTE | 2019-05-06 13:30 | NUR ---
Dr. Marshall and Dr. Limon notified of repeat Ct abdomen results.
--- NOTE | 2019-05-06 18:39 | NUR ---
ATEMPTED MULTIPLE IV SITES WITH NO SUCCESS. DR. SUAREZ NOTIFIED AND STATES LEAVE IV OUT AND ORDER A PICC LINE.
--- NOTE | 2019-05-06 20:15 | NUR ---
PT. RESTING IN BED. NO HEP LOCK OBTAINED, FOR PICC IN AM. LUNGS HAVE CRACKLES BILAT, PULSE OX 92% ON 2L NC. ABDOMEN SOFTLY DISTENDED AND NORMO. TRACE BLE EDEMA, KNEE HIGH KAYLA HOSE ON BILAT. DUBOIS CATHETER DRAINING A CLEAR YELLOW URINE. QUINTON PUCKETT RN
--- NOTE | 2019-05-06 23:09 | NUR ---
PT. GIVEN NORCO AT 2100 FOR COMPLAINTS OF LEG CRAMPING, PT. STATED NORCO EFFECTIVE
[2019-05-07] VITALS (14 sets, daily range): BP systolic 117–196; BP diastolic 54–93
[2019-05-07 04:49] LABS: BASO % 0.2 % (0.0-1.0); HEMATOCRIT 30.4 % (37.0-47.0); HEMOGLOBIN 9.2 g/dl (12.0-16.0); LYMPH % 6.1 % (27.0-41.0); MEAN CELL VOLUME 77.9 fl (81.0-99.0); MEAN CORPUSCULAR HGB 23.6 pg (27.0-31.0); MEAN CORPUSCULAR HGB CONC 30.3 g/dl (33.0-37.0); MEAN PLATELET VOLUME 9.3 fl (9.6-12.3); MONO # 0.6 10*3/uL (0.1-1.0); MONO % 3.6 % (3.0-9.0); NEUT # 15.4 10*3/uL (2.3-7.9); NEUT % 89.6 % (47.0-73.0); NUCLEATED RED BLOOD CELL 0.2 % (0.0-0.0); PLATELET COUNT AUTOMATED 401 10*3/uL (130-400); RED CELL DISTRI WIDTH 19.2 % (0-14.5); WHITE BLOOD COUNT 17.1 10*3/uL (4.8-10.8)
[2019-05-07 05:03] LABS: CREATININE 2.23 mg/dL (0.55-1.02); POTASSIUM 3.4 mmol/L (3.5-5.1)
--- NOTE | 2019-05-07 08:53 | NUR ---
Nursing screen received and chart reviewed. Patient admitted for abdominal pain with a PMH including falls, status post radius and ulna fx, CKD stage 3, and end stage COPD. If patient has a decline in ADLs and functional mobility/transfers, please send OT orders. Thank you. Luz Mcqueen, OTR/L
--- NOTE | 2019-05-07 08:54 | NUR ---
NOTIFIED OF NEW CONSULT.
--- NOTE | 2019-05-07 09:30 | NUR ---
HERE. CONSENT OBTAINED FOR BILATERAL THORACENTESIS.
--- NOTE | 2019-05-07 11:00 | NUR ---
Mathematics Department Chair in to talk to patient. Patient states lives at home alone with her family checking in on her. There are basement steps in the home. Physician: Dr. Brynat Campo Pharmacy: [place] Home health services: she would like [facility] on discharge Patient's level of ADLs: MINIMAL ASSIST Patient has working utilities: yes DME: walker, cane, nebulizer Follow-up physician's appointment after d/c: she prefers to make her own follow up appt after discharge Does patient want to access PORTAL?: no Discharge plan discussed with patient. She lives at home alone with her family checking in on her. She is independent in her ADLs and ambulates with either a walker or a cane. Discussed home health care services and she is agreeable. When provided with a list of agencies she chose [facility]. When medically stable she will be discharged to home with [facility] services. Her son will transport on discharge. DAVID LIMA
[2019-05-07 11:41] LABS: BODY FLUID WBC 17 /uL
[2019-05-07 11:42] LABS: BODY FLUID WBC 9 /uL
[2019-05-07 12:31] LABS: BF LYMPHOCYTES 53 %; BF MACROPHAGES 13 %; BF MONOCYTES 7 %; BF NEUTROPHILS 27 %
[2019-05-07 12:43] LABS: BF LYMPHOCYTES 66 %; BF MACROPHAGES 4 %; BF MONOCYTES 4 %; BF NEUTROPHILS 25 %
--- NOTE | 2019-05-07 13:35 | NUR ---
rEVIEVED PT. TO 524. rEPORT RECIEVED FROM Sumi petit.
[2019-05-07 16:43] LABS: URINE CREATININE RANDOM 70.2 mg/dL
--- NOTE | 2019-05-07 16:43 | NUR ---
PICC patent to KENISHA. Abx up to infuse.
--- NOTE | 2019-05-07 22:43 | NUR ---
DR SUAREZ CALLED AND MADE AWARE THAT PATIENT DID NOT HAVE EGD DONE BY DR LINDQUIST. DR LINDQUIST HAD ALREADY CALLED AND SPOKE WITH DR SUAREZ. OK TO START FULL LIQUID DIET.
[2019-05-08] VITALS (13 sets, daily range): BP systolic 74–144; BP diastolic 40–71
--- NOTE | 2019-05-08 01:05 | NUR ---
24 HR chart check completed.
--- NOTE | 2019-05-08 01:08 | NUR ---
Patient resting quietly with no c/o discomfort. Respirations easy and regular. Vital signs stable. No overt distress. Call light within reach. HISSOM,PHILLY
--- NOTE | 2019-05-08 06:45 | NUR ---
PATIENT RESTING IN BED. VOICES NO CONCERNS/NEEDS AT THIS TIME. RESPS EASY/NON LABORERED. CALL LIGHT WITHIN REACH.
--- NOTE | 2019-05-08 08:00 | NUR ---
CALLED DR KHAN REGARDING RESULTS OF PRO-BNP ORDERED AND SHE ASKED TO TALK TO DR SUAREZ. CALL TRANSFERRED TO DR SUAREZ.
[2019-05-08 08:54] LABS: HEMATOCRIT 30.2 % (37.0-47.0); HEMOGLOBIN 8.9 g/dl (12.0-16.0); MEAN CELL VOLUME 79.7 fl (81.0-99.0); MEAN CORPUSCULAR HGB 23.5 pg (27.0-31.0); MEAN CORPUSCULAR HGB CONC 29.5 g/dl (33.0-37.0); MEAN PLATELET VOLUME 9.5 fl (9.6-12.3); PLATELET COUNT AUTOMATED 381 10*3/uL (130-400); RED BLOOD COUNT 3.79 10*6/uL (4.10-5.10)
[2019-05-08 09:03] LABS: CREATININE 1.44 mg/dL (0.55-1.02)
[2019-05-08 09:16] LABS: MICROCYTOSIS SLIGHT; PLATELET SUFFICIENCY NORMAL (NORMAL); POLYCHROMASIA SLIGHT; SCHISTOCYTES FEW; TOTAL CELLS COUNTED 100 #CELLS
--- NOTE | 2019-05-08 09:37 | NUR ---
CALL PLACED TO DR SUAREZ REGARDING LABS. ALSO PT GLUCOSE WAS 41, PT EATING AND SHE WAS GIVEN OJ. BEDSIDE RECHECK AT THIS TIME IS 50. WILL NOTIFY DR SUAREZ WHEN SHE RETURNS THE PHONECALL.
--- NOTE | 2019-05-08 10:00 | NUR ---
DR SUAREZ CALLED BACK AND NEW ORDERS RECEIVED.
--- NOTE | 2019-05-08 10:23 | NUR ---
PHYSICAL THERAPY Physical therapy evaluation attempted. Patient out of room for radiograph. Will return at a later time/date to complete evaluation. Thank you. Clementine Unger,PT,DPT
--- NOTE | 2019-05-08 10:30 | NUR ---
Professor Of Education in to see patient. Daughter is at the bedside. Discussed short term SNF and she is agreeable. When provided with a list of facilities she chose [facility]. caseworker intake notified.
[2019-05-08 11:11] LABS: CREATININE,URINE 59.8 mg/dL (Not Estab.); MICRO ALBUMIN/CRE RATIO 137.3 (0.0-30.0)
--- NOTE | 2019-05-08 11:33 | NUR ---
STEAM BOX TENDER received notice the patient would like to be referred to [facility]. STEAM BOX TENDER faxed referral to [facility]. Patient does require a PRECERT. -SYLVIE Moran
--- NOTE | 2019-05-08 13:05 | NUR ---
PHYSICAL THERAPY Physical Evaluation completed, 5E. Full details and evaluation to follow when completed. Moderate complexity evaluation per chart review and evaluation, [address]. PT to improve gait, strength, balance, safety, transfers, bed mobility. Therapy recommending SNF. Thank you Catrina Moore, PT, DPT
--- NOTE | 2019-05-08 15:35 | NUR ---
MAYUR REPORTED LOW BP WHEN CHECKING LEG. I CALLED DR BROWN TO SEE IF I COULD CHECK A MANUAL ON HER RIGHT ARM SINCE SHE HAS A PICC IN THE LEFT UPPER ARM AND SHE SAID NOT UNLESS ABSOLUTELY NECESSARY. IN THIS CASE IT IS AND ONE WAS CHECKED BY THIS NURSE WITH A RESULT OF 70/60. NOTIFIED DR SUAREZ AND NEW ORDER RECEIVED FOR A CONSULT TO DR BARR. DR BARR OFFICE CALLED FOR CONSULT.
--- NOTE | 2019-05-08 16:39 | NUR ---
DR MARCANO AND DR BARR UP TO SEE PATIENT. ATTEMPTED TO GET BLOOD PRESSURE AND THEY WERE UNSUCCESSFUL. PT ASYMPTOMATIC AND HAS STRONG PULSE. NEW ORDERS FOR STAT H&H AND 250ML BOLUS NOW.
--- NOTE | 2019-05-08 17:02 | NUR ---
PATIENT TRANSFERRED TO ICU. REPORT GIVEN TO TAMMY. DR SUAREZ NOTIFIED
--- NOTE | 2019-05-08 17:03 | NUR ---
PER DR MARCANO GIVE A TOTAL OF 500 CC BOLUS
[2019-05-08 17:14] LABS: HEMATOCRIT 30.5 % (37.0-47.0)
--- NOTE | 2019-05-08 17:15 | NUR ---
RECEIVED FROM VIA BED. ALERT, COMMUNICATING ON ARRIVAL. SKIN COOL/DRY. MANUAL BP 74/40 LEFT ARM. AUTO CUFF LEFT LEG 139/47. DUBOIS CATHETER IN PLACE. SOFT CAST TO RT ARM, FINGERS WARM.
--- NOTE | 2019-05-08 17:17 | NUR ---
DR KHAN HERE TO SEE PATIENT.
--- NOTE | 2019-05-08 17:28 | NUR ---
DR BAILEY NOTIFIED OF PT'S TRANSFER TO ICCU. REVIEWED LABS/XRAY ASSESSMENT WITH HIM.
--- NOTE | 2019-05-08 17:40 | NUR ---
DR SUAREZ CALLED AND UPDATED ON PT CONDITION.
--- NOTE | 2019-05-08 17:54 | NUR ---
PT RESTING EASILY IN BED, FAMILY AT BEDSIDE. DINNER ORDERED.
--- NOTE | 2019-05-08 21:54 | NUR ---
1930 RESTING IN BED IN SUPINE POSITION. ALERT. FLAT AFFECT. NO DISTRESS NOTED. PICC LINE INTACT KENISHA. CAST INTACT R ARM. FINGERS WARN AND AND MOVEABLE. DUBOIS PATENT AND DRAINING CLEAR YELLOW URINE. PULSE OX 97% ON 2L. NO C/O'S PAIN VOICED AT PRESENT TIME. CALL LIGHT IN REACH. SEE INTERVENTION SCREEN FOR BP'S.
[2019-05-09] VITALS (12 sets, daily range): BP systolic 109–164; BP diastolic 64–98
--- NOTE | 2019-05-09 00:23 | NUR ---
0000 COMPLETE BED BATH GIVEN AND LINENS CHANGED. NPO FOR EGD IN AM. REPOSITIONED ON LEFT SIDE. CONFUSED TO PLACE AND TIME. BED ALARN INTACT.
--- NOTE | 2019-05-09 04:03 | NUR ---
REMAINS RESTING IN BED WITH EYES CLOSED.
[2019-05-09 05:20] LABS: CREATININE 1.39 mg/dL (0.55-1.02)
[2019-05-09 05:34] LABS: POTASSIUM 4.3 mmol/L (3.5-5.1)
--- NOTE | 2019-05-09 06:04 | NUR ---
REPOSITIONED ON BACK. REMAINS WITHOUT C/O'S. NPO CONT. CONDITION GUARDED.
[2019-05-09 06:50] LABS: BASO # 0.1 10*3/uL (0.0-0.1); BASO % 0.4 % (0.0-1.0); HEMATOCRIT 30.8 % (37.0-47.0); HEMOGLOBIN 8.7 g/dl (12.0-16.0); LYMPH # 1.3 10*3/uL (1.3-4.4); LYMPH % 11.2 % (27.0-41.0); MEAN CELL VOLUME 82.1 fl (81.0-99.0); MEAN CORPUSCULAR HGB 23.2 pg (27.0-31.0); MEAN CORPUSCULAR HGB CONC 28.2 g/dl (33.0-37.0); MEAN PLATELET VOLUME 9.4 fl (9.6-12.3); MONO # 0.8 10*3/uL (0.1-1.0); MONO % 6.8 % (3.0-9.0); NEUT # 9.4 10*3/uL (2.3-7.9); NEUT % 81.3 % (47.0-73.0); NUCLEATED RED BLOOD CELL 0.3 % (0.0-0.0); PLATELET COUNT AUTOMATED 343 10*3/uL (130-400); RED BLOOD COUNT 3.75 10*6/uL (4.10-5.10); RED CELL DISTRI WIDTH 20.8 % (0-14.5); WHITE BLOOD COUNT 11.6 10*3/uL (4.8-10.8)
--- NOTE | 2019-05-09 08:00 | NUR ---
RESIDENT ASSISTANT CNA faxed updates to [facility]. -SYLVIE Moran
--- NOTE | 2019-05-09 08:20 | NUR ---
DR SUAREZ IN TO SEE PT. UPDATED HER ON PT'S CONDITION AN DPLAN OF CARE. NEW ORDERS RECEIVED.
--- NOTE | 2019-05-09 08:37 | NUR ---
PHYSICAL THERAPY Patient transferred to ICCU due to change in medical status. Please consider PT order when medically appropriate. Thank you. Clementine Unger,PT,DPT
--- NOTE | 2019-05-09 09:00 | NUR ---
Special Tax Auditor in to see patient. She is resting with her eyes closed. Family at bedside. Discussed discharge planning with family. [facility] and precert is obtained.
--- NOTE | 2019-05-09 10:21 | NUR ---
PT'S FAMILY IN TO SEE PT. UPDATED THEM ON PT'S CONDITION AND PLAN OF CARE.
--- NOTE | 2019-05-09 11:53 | NUR ---
DR BARR IN TO SEE PT. NEW ORDERS RECEIVED.
--- NOTE | 2019-05-09 12:21 | NUR ---
MONTSERRAT, FROM [facility], HERE TO DO PT'S ECHO.
--- NOTE | 2019-05-09 13:30 | NUR ---
PT TO SURGERY VIA BED.
--- NOTE | 2019-05-09 15:00 | NUR ---
PT BACK FROM SURGERY. VSS. PT AND FAMILY UPDATED ON EGD RESULTS. I SPOKE WITH DR LINDQUIST EARLIER AND HE GACE ME EGD RESULTS AND NEW ORDERS.
--- NOTE | 2019-05-09 20:13 | NUR ---
1945 RESTING IN BED TALKING WITH VISITORS. HOB ELEVATED. SIDE RAILS UP X'S 2. PICC LINE INTACT KENISHA. CAST INTACT R ARM. FINGERS R HAND WARM AND MOVEABLE. PULSE OX 96% ON 2L. NO C/O'S VOICED. DUBOIS PATENT AND DRAINING CLEAR YELLOW URINE. NO DISTRESS NOTED.
--- NOTE | 2019-05-09 22:04 | NUR ---
RESTING IN BED WITH EYES CLOSED. APPEARS TO BE SLEEPING. REFUSED BATH EARLIER. WILL REASSESS.
[2019-05-10] VITALS: BP 105/68
[2019-05-10 04:00] VITALS: BP 110/65
--- NOTE | 2019-05-10 04:36 | NUR ---
REMAINS SLEEPING WITHOUT DISTRESS.
[2019-05-10 05:32] LABS: BASO % 0.4 % (0.0-1.0); EOS % 0.1 % (1.0-4.0); HEMATOCRIT 31.5 % (37.0-47.0); HEMOGLOBIN 9.2 g/dl (12.0-16.0); LYMPH # 1.5 10*3/uL (1.3-4.4); LYMPH % 13.3 % (27.0-41.0); MEAN CELL VOLUME 82.2 fl (81.0-99.0); MEAN CORPUSCULAR HGB CONC 29.2 g/dl (33.0-37.0); MEAN PLATELET VOLUME 9.2 fl (9.6-12.3); MONO # 0.7 10*3/uL (0.1-1.0); MONO % 6.5 % (3.0-9.0); NEUT % 79.3 % (47.0-73.0); PLATELET COUNT AUTOMATED 310 10*3/uL (130-400); RED BLOOD COUNT 3.83 10*6/uL (4.10-5.10); RED CELL DISTRI WIDTH 21.3 % (0-14.5); WHITE BLOOD COUNT 11.3 10*3/uL (4.8-10.8)
[2019-05-10 05:36] LABS: CREATININE 1.16 mg/dL (0.55-1.02); POTASSIUM 3.8 mmol/L (3.5-5.1)
--- NOTE | 2019-05-10 06:16 | NUR ---
AWAKENED FOR AM MEDS, REMAINS WITHOUT C/O'S. DUBOIS PATENT. CONDITION GUARDED.
--- NOTE | 2019-05-10 06:59 | NUR ---
Shift chart check completed.24 HR chart check completed.
[2019-05-10 07:11] LABS: PHOSPHOROUS 1.4 mg/dL (2.5-4.9)
[2019-05-10 08:00] VITALS: BP 108/50
--- NOTE | 2019-05-10 08:16 | NUR ---
ON ASSESSMENT PATIENT IS ALERT AND ORIENTED IN NO ACUTE DISTRESS. SHE WAS OFFERED TO GET OUT OF BED FOR BREAKFAST BUT PREFERRED TO JUST BE REPOSITIONED AT THIS TIME. CAST INTACT RT FOREARM. FINGERS WARM WITH GOOD CAPILLARY REFILL. DUBOIS CATHETER PATENT CLEAR RAÚL URINE. PICC LINE IN PLACE LEFT ARM. DR BARR HAS VISITED. SEE ALL APPROPRIATE INTERVENTIONS.
--- NOTE | 2019-05-10 09:00 | NUR ---
Appeals Assistant in to see patient. No new needs or request at this time. When medically stable and precert is received she will be discharged to [facility]. product planner following.
--- NOTE | 2019-05-10 09:17 | NUR ---
ATTEMPTED TO CALL DR LINDQUIST WITH [facility]. LIFT VOICEMAIL TO CALL BACK. DR BAILEY HAS VISITED.
--- NOTE | 2019-05-10 11:17 | NUR ---
Occupational Therapy evaluation completed in ICCU with full eval to follow. Precautions include fall risk, acute debility, ICCU precautions,O2 use, right wrist fracture in cast,moderate complexity level 37206 via chart review, testing and evaluation. Recommend OT per POC and SNF to enable max ability in ADls and mobility for returnl home alone. Thank you. Lili Sullivan OTR/L
--- NOTE | 2019-05-10 11:18 | NUR ---
PHYSICAL THERAPY Physical therapy evaluation completed, ICU 4-1. Full details and evaluation to follow. Moderate complexity determined after PT evaluation and chart review. PT will work on strength, endurance, balance, gait, safety, transfers, bed mobility. Recommending SNF. Thank you Catrina Moore, PT, DPT
--- NOTE | 2019-05-10 11:21 | NUR ---
COMPLETE BED BATH WITH HAIRWASH. DR KHAN HAS VISITED.
[2019-05-10 12:00] VITALS: BP 121/67
--- NOTE | 2019-05-10 12:14 | NUR ---
DR LINDQUIST NOTIFIED OF AM HGB/HCT. NO NEW ORDERS.
--- NOTE | 2019-05-10 12:39 | NUR ---
PT'S SON CALLED ME TO THE ROOM, PT SAID HER "RIGHT THUMB HAD BEEN BLEEDING". ON ASSESSMENT THERE IS A DRK PARKS HARDENED AREA THAT DID NOT RUB OFF WITH SALINE/2X2'S, NO OPEN AREA SEEN. IT HAS NO CONTACT WITH ANY PART OF HER SOFT CAST. WILL CONTINUE TO MONITOR.
--- NOTE | 2019-05-10 13:37 | NUR ---
PT FED LUNCH. 4 BITES MAC/CHEESE AND 3 BITES POT ROAST.
--- NOTE | 2019-05-10 15:01 | NUR ---
CONSTRUCTION PROJECT ADMINISTRATOR faxed updates to [facility]. -SYLVIE Moran
[2019-05-10 16:00] VITALS: BP 134/87
--- NOTE | 2019-05-10 16:55 | NUR ---
OUT OF BED WITH ASSIST OF TWO. FAIR WT BEARING. UP IN CARDIAC CHAIR. WARM BLANKETS PER HER REQUEST. PT HAS HAD POOR APPETITE AND POOR INTAKE. HAVE ALLOWED HER TO ORDER CREAM CHICKEN ON BISCUIT IN SPITE OF SODIUM CONTENT SHE EATS VERY LITTLE.
--- NOTE | 2019-05-10 17:52 | NUR ---
TO BSC FOR ONE SMALL HARD, CONSTIPATED STOOL. BROWN. NO BLEEDING NOTED.
--- NOTE | 2019-05-10 19:08 | NUR ---
PT BACK TO BED WITH ASSIST OF TWO. CHART CHECK COMPLETE.
[2019-05-10 20:00] VITALS: BP 112/58
--- NOTE | 2019-05-10 20:13 | NUR ---
DRINKING SOME CHOCOLATE ENSURE. PT DOES NOT WANT SNACK OF COTTAGE CHEESE AND FRUIT AT THIS TIME. FAMILY HAS GONE HOME. BED EXIT ALARM ON FOR SAFETY.
[2019-05-11] VITALS (9 sets, daily range): BP systolic 96–173; BP diastolic 49–83
[2019-05-11 06:05] LABS: BUN 31 mg/dl (7-24); CHLORIDE 108 mmol/L (98-107); CREATININE 1.02 mg/dL (0.55-1.02); POTASSIUM 3.3 mmol/L (3.5-5.1); SODIUM 140 mmol/L (136-145)
[2019-05-11 06:09] LABS: HEMATOCRIT 32.1 % (37.0-47.0); HEMOGLOBIN 9.2 g/dl (12.0-16.0); MEAN CELL VOLUME 81.5 fl (81.0-99.0); MEAN CORPUSCULAR HGB 23.4 pg (27.0-31.0); MEAN CORPUSCULAR HGB CONC 28.7 g/dl (33.0-37.0); MEAN PLATELET VOLUME 9.8 fl (9.6-12.3); PLATELET COUNT AUTOMATED 286 10*3/uL (130-400); RED BLOOD COUNT 3.94 10*6/uL (4.10-5.10); RED CELL DISTRI WIDTH 22.4 % (0-14.5); WHITE BLOOD COUNT 10.4 10*3/uL (4.8-10.8)
--- NOTE | 2019-05-11 06:11 | NUR ---
AM MEDICATIONS WERE TAKEN WITHOUT DIFFICULTY. PT WITHOUT COMPLAINTS.
[2019-05-11 06:48] LABS: ACANTHOCYTES FEW; BASOPHILS 1 % (0-1); OVALOCYTES FEW; PLATELET SUFFICIENCY NORMAL (NORMAL); SCHISTOCYTES FEW; TOTAL CELLS COUNTED 100 #CELLS
[2019-05-11 06:49] LABS: POLYCHROMASIA SLIGHT
--- NOTE | 2019-05-11 09:08 | NUR ---
PHYSICAL THERAPY IN TO WORK WITH PT. PT UP TO CHAIR FOR BREAKFAST. DR BARR IN TO SEE PT EARLIER. UPDATED HIM ON PT'S CONDITION AND PLAN OF CARE. NEW ORDERS RECEIVED.
--- NOTE | 2019-05-11 09:15 | NUR ---
PHYSICAL THERAPY Patient seen this am 1:1 for therapy visit and was resting supine in bed upon therapist arrival. Patient identified by name / and presented with continuos O2-1L via NC. Patient BP elevated, 173/84 and advised by nursing elíasay to continue treatment. Patient also presented with R elbow cast and is NWB. Patient resting SpO2 94%, HR 95 bpm prior to transfering supine to sit EOB with MIN A. Patient tolerated several minutes static sit EOB then performed sit to stand transfer and SPT to bedside chair MIN A, use of R side platform walker. Patient demonstrated Fair balance / upright posture and needed v/c to improve safe step sequence. Patient SpO2 drops to 88%, HR 110 bpm and following brief 10 second rest returned to 96% SpO2, HR 92 bpm. Patient able to complete seated B LE therex, all planes. x 10 reps each without c/o and remained in bedside chair with call light as family member arrived to visit. Will continue per POC as tolerated, total treatment time 16 minutes. Omar Orozco, RESTORATIVE AIDE
--- NOTE | 2019-05-11 09:15 | NUR ---
OT NOTE Pt was seen this A.M. 1:1 for 17 minute OT session. Upon arrival pt was supine in bed. Pt identified by name and and had no complaints at this time. Pt presented to therapy with continuous 1L-O2 via NC which she remained on throughout the entire session. Pt's resting SpO2 was 94% with heart rate 95 bpm. Pt transferred supine to sit EOB with modA and education provided on techniques for increased I in bed mobility. Challenged pt's dynamic sitting balance needed for increased I and enhanced safety and pt was able to maintain G- sitting balance throughout. Sit to stand completed from bed level with Deon and use of platform walker for UE support. Challenged pt's static standing tolerance needed for increased I in self care tasks and functional transfers and pt was able to tolerate aprox 2 minutes at a time before sitting due to fatigue and SpO2 dropping to 86%. After aprox 6 seconds of a seated rest break pt's SpO2 raised to 96%. Pt was left sitting upright in the recliner with call light in hand, tray table in place, and visitor at bedside. Continue with rec D/C plan to SNF. SUZANNA Aguilar/Tiffanie
--- NOTE | 2019-05-11 09:20 | NUR ---
DR BAILEY IN TO SEE PT.
--- NOTE | 2019-05-11 09:47 | NUR ---
DR SUAREZ IN TO SEE PT. NEW ORDERS RECEIVED.
--- NOTE | 2019-05-11 10:30 | NUR ---
PT REMAINS SITTING IN THE CHAIR. TOLERATING IT WELL.
--- NOTE | 2019-05-11 11:00 | NUR ---
Educational Interpreter in to see patient. She is sitting up in her bedside chair without distress noted. No new needs or request at this time. When medically stable and precert is received she will be discharged to [facility]. automatic data processing planner following.
--- NOTE | 2019-05-11 12:04 | NUR ---
DR KHAN IN TO SEE PT. NEW ORDERS RECEIVED.
--- NOTE | 2019-05-11 12:20 | NUR ---
PHYSICAL THERAPY CO-SIGN I approve of the Physical Therapy notes written above. DAVID SOLIS PT, DPT
--- NOTE | 2019-05-11 13:08 | NUR ---
PT SITTING IN THE CHAIR VISITNG WITH HER SON. PT DENIES COMPLAINTS AT PRESENT TIME.
--- NOTE | 2019-05-11 15:33 | NUR ---
ISORDIL HELD DUE TO BP 96/49.
--- NOTE | 2019-05-11 15:34 | NUR ---
PO ISORDIL HELD DUE TO BP 96/49. PT ASYMP.
--- NOTE | 2019-05-11 16:08 | NUR ---
PT RESTING. PT DENIES COMPLAINTS AT THIS TIME.
[2019-05-12] VITALS: BP 127/57
--- NOTE | 2019-05-12 05:28 | NUR ---
COMPLETE BATH AND BED LINEN CHANGE DONE. PT TOLERATED WELL.
[2019-05-12 08:00] VITALS: BP 111/61
--- NOTE | 2019-05-12 08:40 | NUR ---
PT UP TO THE CHAIR WITH 2 ASSIST. PT'S SON IN TO VISIT.
--- NOTE | 2019-05-12 11:00 | NUR ---
DR TERRAZAS AND DR KHAN IN TO SEE PT EARLIER. NO NEW ORDERS RECEIVED.
[2019-05-12 12:00] VITALS: BP 142/82
--- NOTE | 2019-05-12 14:30 | NUR ---
PT BACK TO BED WITH 2 ASSIST. PT DENIES COMPLAINTS.
--- NOTE | 2019-05-12 15:01 | NUR ---
2PM ISORDIL HELD FOR BP 100/45.
[2019-05-12 15:02] VITALS: BP 100/45
--- NOTE | 2019-05-12 15:18 | NUR ---
PT TO 534 VIA BED. PT REPORT GIVEN TO RECEIVING NURSE SOLANGE.
--- NOTE | 2019-05-12 15:20 | NUR ---
PATIENT IN ROOM, TRANSFERRED FROM ICU. PATIENT STATES NO NEEDS AT THIS TIME, VOICED NO COMPLAINTS. NO DISTRESS NOTED, RESP ARE ERND ON 2L NC. BED IS LOCKED IN LOWEST POSITION, ALARM MAINTAINED. CALL LIGHT WITHIN REACH.
[2019-05-12 16:00] VITALS: BP 117/56
[2019-05-12 20:00] VITALS: BP 120/64
[2019-05-13] VITALS: BP 120/71
[2019-05-13 04:00] VITALS: BP 134/43
[2019-05-13 07:17] LABS: BASO # 0.1 10*3/uL (0.0-0.1); BASO % 0.5 % (0.0-1.0); EOS % 0.1 % (1.0-4.0); HEMOGLOBIN 9.1 g/dl (12.0-16.0); LYMPH # 1.3 10*3/uL (1.3-4.4); LYMPH % 12.7 % (27.0-41.0); MEAN CELL VOLUME 81.8 fl (81.0-99.0); MEAN CORPUSCULAR HGB 23.3 pg (27.0-31.0); MEAN CORPUSCULAR HGB CONC 28.4 g/dl (33.0-37.0); MEAN PLATELET VOLUME 9.3 fl (9.6-12.3); MONO # 0.7 10*3/uL (0.1-1.0); MONO % 6.6 % (3.0-9.0); NEUT # 8.3 10*3/uL (2.3-7.9); NEUT % 79.5 % (47.0-73.0); PLATELET COUNT AUTOMATED 336 10*3/uL (130-400); RED BLOOD COUNT 3.91 10*6/uL (4.10-5.10); RED CELL DISTRI WIDTH 22.6 % (0-14.5); WHITE BLOOD COUNT 10.5 10*3/uL (4.8-10.8)
[2019-05-13 07:29] LABS: BUN 29 mg/dl (7-24); CHLORIDE 107 mmol/L (98-107); CREATININE 0.92 mg/dL (0.55-1.02); POTASSIUM 4.1 mmol/L (3.5-5.1); SODIUM 139 mmol/L (136-145)
[2019-05-13 08:00] VITALS: BP 130/54
[2019-05-13 12:00] VITALS: BP 115/56
--- NOTE | 2019-05-13 15:28 | NUR ---
REPORT RECIEVED FROM BRIGIDA FUNES.INITIAL ASSESSMENT COMPLETE.SPO2 97% ON RA.DIM T/O.RESPS EASY. NO DISTRESS NOTED. STABLE AT THIS TIME.BED ALARM INTACT. CALL LIGHT IN REACH.
[2019-05-13 16:00] VITALS: BP 117/67
[2019-05-13 20:00] VITALS: BP 152/71
[2019-05-14] VITALS: BP 139/65
[2019-05-14 04:00] VITALS: BP 132/66
[2019-05-14 08:00] VITALS: BP 117/57
--- NOTE | 2019-05-14 08:17 | NUR ---
CIRCUS TRAINER faxed updates to [facility]. Will need updated PT/OT. -SYLVIE Moran
[2019-05-14] MEDS ORDERED: MIRTAZAPINE15 M2 PO (09:56)
[2019-05-14] MEDS ORDERED: CEFUROXIME AXE250 MG PO (09:56)
[2019-05-14] MEDS ORDERED: CARVEDILOL3.125 MG PO (09:56)
[2019-05-14] MEDS ORDERED: ROPINIROLE HYDRO1 MG PO (09:56)
--- NOTE | 2019-05-14 10:25 | NUR ---
SPOKE WITH DR BROWN'S RN REGARDING CAST REMOVAL. PER DR BROWN PT HAS F/U ALREADY SCHEDULED FOR REMOVAL ON 05/25/19 AT 10 AM. PT CLEARED FOR D/C.
--- NOTE | 2019-05-14 10:56 | NUR ---
OT NOTE Pt was seen this A.M. 1:1 for 16 minute OT session. Upon arrival pt was supine in bed. Pt identified by name and and had no complaints at this time. Pt transferred supine to sit EOB with Deon. Pt completed sit to stand transfer from bed level with Deon and use of platform walker for UE support. Challenged pt's static standing tolerance needed for increased I in self care tasks and functional transfers, pt was able to tolerate aprox 3 minutes before sitting due to fatigue. Pt completed functional mobility to the bathroom and back with Deon and use of platform walker. Pt then transferred back into bed sit to supine with Deon. There she was left with call light in hand, tray table in place, and bed alarm activated for safety. Continue with rec D/C plan to SNF. SUZANNA Aguilar/Tiffanie
--- NOTE | 2019-05-14 11:05 | NUR ---
PHYSICAL THERAPY Patient seen this am 1;1 for therapy visit and was resting supine in bed with several family members present upon therapist arrival. Patient voices no new c/o's and presents with R UE cast with outer matias wrap. Patient is NWB on R UE and transfers supine to sit EOB with MIN A. Patient has history of R knee buckle and was educated on importance of locking knee out with increased Quad control. Patient transfers sit to stand MIN A and ambulated 15'x 1, wh walker with R side platform, Min A, demonstrating very slow, single step to jaspal. Patient did a good job in locking R knee with improve knee extension and demonstrated no buckling episodes this session. Patient returned to supine in bed with increased fatigue and remained with call light, tray table and bed alarm for safety. Will continue per POC as tolerated, total treatment time 14 minutes. Omar Orozco, MANAGER ACCOUNT MANAGEMENT
[2019-05-14 12:00] VITALS: BP 135/67
--- NOTE | 2019-05-14 12:01 | NUR ---
COVER STRIPPER faxed updated PT/OT evals. [facility] has started PRECERT. -SYLVIE Moran
--- NOTE | 2019-05-14 12:43 | NUR ---
PATIENT SITTER completed HENs. Still waiting on PRECERT. -SYLVIE Moran
[2019-05-14 16:00] VITALS: BP 110/53
[2019-05-14 20:00] VITALS: BP 136/87
--- NOTE | 2019-05-14 21:17 | NUR ---
PT'S SILVINO HEARD D/C'S AT THIS TIME
[2019-05-15] VITALS: BP 125/53
[2019-05-15 08:00] VITALS: BP 144/59
--- NOTE | 2019-05-15 08:00 | NUR ---
OT NOTE Pt was seen this A.M. 1:1 for 15 minute OT session. Upon arrival pt was supine in bed. Pt identified by name and and had complaints of generalized weakness and fatigue. Pt presented to therapy with continuous 2.5L-O2 via NC which she remained on throughout the entire session. Pt's resting SpO2 was 96%. Pt transferred supine to sit EOB with Deon for assist with UB. Pt completed sit to stand from bed level with Deon and use of platform walker for UE support. Standing pivot then completed from the EOB to the bedside commode with Deon and use of platform walker. Clothing management completed with modA. Sit to stand then completed from the bedside commode with modA due to low surface. Functional mobility then completed from the bedside commode to the recliner with Deon and use of platform walker. Pt had one episode of R knee buckling that required modA to correct. Educated pt on locking her knees out to decrease risk of knee buckle, pt had good carry over throughout session when provided with verbal prompts. Pt's SpO2 throughout activity was 94%. Pt was left sitting upright in the recliner with call light in hand, tray table in place, and body alarm activated for safety. Continue with rec D/C plan to SNF. DALE Aguilar
--- NOTE | 2019-05-15 08:57 | NUR ---
Auth has been obtanined patient can go to [facility] when medically stable. -SYLVIE Moran
--- NOTE | 2019-05-15 10:50 | NUR ---
SYLVIE spoke with [employer]. Rn requested a noon pickup. SYLVIE reached out to the patient son Candido who stated he would rather the patient go to [facility] via Ambulance. SYLVIE spoke with Brock Choi and arranged for a Noon pickup. SYLVIE notified the work space and storage clerk. [employer] [facility] to fax demographics to Brock Choi. -SYLVIE Moran
--- NOTE | 2019-05-15 11:10 | NUR ---
PHYSICAL THERAPY Patient seen this am 1:1 for therapy visit and was sitting up in bedside recliner chair upon therapist arrival. Patient stated she had already ambulated earlier with OT admin assistant and agreed to seated B LE therex, all planes, x 20 reps each to increase LE strength. Patient also completed several sit to stand transfers from low chair surface, Min/FELTING MACHINE OPERATOR HELPER, tolerating approx 1 minute static stand each trial. Patient fatigues quickly and returned to semi reclined in chair while remaining with call light, tray table, telephone and body alarm. Will continue per POC as tolerated, total treatment time 16 minutes. Omar Orozco, GRINDING MACHINE OPERATOR
--- NOTE | 2019-05-15 11:33 | NUR ---
REPORT TO [facility]
--- NOTE | 2019-05-15 12:00 | NUR ---
DC TO [facility] REPORT GIVEN
--- NOTE | 2019-05-16 16:18 | NUR ---
OCCUPATIONAL THERAPY CO-SIGN I approve of the Occupational Therapy notes written above. DREW BAUMAN OTR/Tiffanie
== END 2019-05-15 12:00 | disposition other institution (70) | DRG 871 ==
LOC: ED 18:31 → ICCU 19:57 → EDHOLD 19:57 → 5E 19:57 → ICCU 20:36 → 5E 05-07 13:26 → ICCU 05-08 17:36 → 5E 05-12 14:46
PROVIDERS: Internal Medicine; Internal Medicine Cardiovascular Disease; Internal Medicine Critical Care Medicine; Internal Medicine Gastroenterology; Internal Medicine Nephrology; Nurse Practitioner Family; ADMIT Internal Medicine
DX: A41.9 Sepsis, unspecified organism (principal); K29.71 Gastritis, unspecified, with bleeding; K85.90 Acute pancreatitis without necrosis or infection, unspecified; J18.9 Pneumonia, unspecified organism; N17.0 Acute kidney failure with tubular necrosis; I50.43 Acute on chronic combined systolic (congestive) and diastolic (congestive) heart failure; J96.20 Acute and chronic respiratory failure, unspecified whether with hypoxia or hypercapnia; K25.4 Chronic or unspecified gastric ulcer with hemorrhage; K22.11 Ulcer of esophagus with bleeding; K26.4 Chronic or unspecified duodenal ulcer with hemorrhage; E87.2 Acidosis; J91.8 Pleural effusion in other conditions classified elsewhere; I13.0 Hypertensive heart and chronic kidney disease with heart failure and stage 1 through stage 4 chronic kidney disease, or unspecified chronic kidney disease; I47.2 Ventricular tachycardia; J44.0 Chronic obstructive pulmonary disease with (acute) lower respiratory infection; I42.9 Cardiomyopathy, unspecified; F33.0 Major depressive disorder, recurrent, mild; R18.8 Other ascites; I31.3 Pericardial effusion (noninflammatory); D64.9 Anemia, unspecified; E78.5 Hyperlipidemia, unspecified; I25.10 Atherosclerotic heart disease of native coronary artery without angina pectoris; K21.0 Gastro-esophageal reflux disease with esophagitis; K44.9 Diaphragmatic hernia without obstruction or gangrene; K59.09 Other constipation; Z66 Do not resuscitate; I08.3 Combined rheumatic disorders of mitral, aortic and tricuspid valves; R62.7 Adult failure to thrive; Z51.5 Encounter for palliative care; I73.9 Peripheral vascular disease, unspecified; M06.9 Rheumatoid arthritis, unspecified; M17.11 Unilateral primary osteoarthritis, right knee; E03.9 Hypothyroidism, unspecified; I27.20 Pulmonary hypertension, unspecified; G25.81 Restless legs syndrome; N18.3 Chronic kidney disease, stage 3 (moderate); I95.9 Hypotension, unspecified; E87.6 Hypokalemia; E83.39 Other disorders of phosphorus metabolism; R53.1 Weakness; R79.89 Other specified abnormal findings of blood chemistry; T50.2X5A Adverse effect of carbonic-anhydrase inhibitors, benzothiadiazides and other diuretics, initial encounter; Y92.238 Other place in hospital as the place of occurrence of the external cause; S52.91XS Unspecified fracture of right forearm, sequela; S52.201S Unspecified fracture of shaft of right ulna, sequela; W18.30XS Fall on same level, unspecified, sequela; Z98.51 Tubal ligation status; Z98.49 Cataract extraction status, unspecified eye; Z83.3 Family history of diabetes mellitus; Z82.49 Family history of ischemic heart disease and other diseases of the circulatory system; Z80.8 Family history of malignant neoplasm of other organs or systems; Z79.899 Other long term (current) drug therapy; Z79.890 Hormone replacement therapy; Z79.82 Long term (current) use of aspirin; Z79.02 Long term (current) use of antithrombotics/antiplatelets; Z79.52 Long term (current) use of systemic steroids

== ENCOUNTER → 2019-05-21 | Outpatient (CLI) | payer OTHER, MEDICAID ==
[~2019-05-21] MED LIST changes: +CARVEDILOL3.125 MG PO; +LUMIGAN50 DRP OU; +MIRTAZAPINE15 M2 PO; +PLAQUENIL200 MG PO; +PLAVIX75 M1 PO; +PREDNISONE5 MG PO; +ROPINIROLE HYDRO1 MG PO; +SERTRALINE HYDR50 MG PO
== END | disposition home or self-care (01) ==
LOC: ORTHO 00:49
DX: S52.501D Unspecified fracture of the lower end of right radius, subsequent encounter for closed fracture with routine healing (principal); M19.031 Primary osteoarthritis, right wrist; X58.XXXD Exposure to other specified factors, subsequent encounter

== ENCOUNTER 2019-05-31 22:17 | Emergency (ER) | payer OTHER, MEDICAID ==
[~2019-05-31] VITALS: Ht 167.6 cm; Wt 81.6 kg
== END 2019-05-31 23:01 ==
LOC: ED 22:17
DX: S62.101D Fracture of unspecified carpal bone, right wrist, subsequent encounter for fracture with routine healing (principal); R40.20 Unspecified coma; Z51.5 Encounter for palliative care; J44.9 Chronic obstructive pulmonary disease, unspecified; M06.9 Rheumatoid arthritis, unspecified; I12.9 Hypertensive chronic kidney disease with stage 1 through stage 4 chronic kidney disease, or unspecified chronic kidney disease; N18.3 Chronic kidney disease, stage 3 (moderate); Z79.899 Other long term (current) drug therapy; Z79.82 Long term (current) use of aspirin; Z79.2 Long term (current) use of antibiotics; X58.XXXD Exposure to other specified factors, subsequent encounter